=== PATIENT | male | born 1965 | race Caucasian/White ===

== ENCOUNTER → 2016-10-05 | Outpatient (CLI) | payer OTHER ==
[~2016-10-05] MED LIST: ATOR40TA PO; CARB10TACH PO; FLUO10CA8 PO; HYDR12.55 PO; IRON65TA PO; LISI-538 PO; NAPR500T PO; NAPR500T2 PO; PANT40TA2 PO; TRAZ50TA4 PO
--- NOTE | 2016-10-07 20:49 | SLEEPCENT ---
DATE OF PROCEDURE: 10/05/2016 REFERRING PHYSICIAN: Lady Bar NP Nocturnal polysomnography was performed for evaluation of sleep apnea syndrome symptoms in this patient with a history of excessive somnolence, nonrestorative sleep and comorbidities of hypertension. 8 hours and 20 minutes of data were reviewed. There were 362 minutes of sleep identified. Sleep latency was short at 8.5 minutes. Rapid eye movement (REM) latency was normal at 87.5 minutes. Sleep architecture showed severe fragmentation with periods of wake. There were four REM periods appreciated. Overall sleep efficiency was 74.1%. The patient's EKG showed a sinus rhythm with an average heart rate of 68 beats per minute. Rate variability was seen surrounding respiratory events. Rate ranged 60 to 80 beats per minute. EEG shows mild artifactual changes. No focal events were seen. Overall normal waveforms were seen for awake and sleep. There were 338 respiratory events identified of 10 seconds in duration or greater for an apnea/hypopnea index of 55.9. The events were primarily obstructive, but significant mixed and central apneic activity was also seen. The events were not exclusive to sleep stage nor body posture. Arousals were seen 35.8 times per hour from respiratory events. There was activity in the limb leads but limb movement arousal index was only 1.5. Oxygen desaturations were seen in the upper 70s. IMPRESSION: Severe obstructive sleep apnea syndrome (G47.33). Apnea-hypopnea index 55.9. RECOMMENDATION: The patient should be encouraged to return to the sleep disorder center at his earliest convenience for pressure therapy. In the interim, alcohol and sedative avoidance should be practiced and caution exercised during the operation of motor vehicles.
== END ==
LOC: M SLEEP 19:45
PROVIDERS: ATTEND Nurse Practitioner Adult Health
DX: G47.30 Sleep apnea, unspecified (principal)

== ENCOUNTER → 2016-10-25 | Outpatient (CLI) | payer OTHER ==
--- NOTE | 2016-10-25 14:36 | REP ---
Digital diagnostic bilateral mammography with CAD and focused bilateral sonography. History: Painful left breast enlargement. Tenderness. Comparison is made with CT angiography images from May 31, 2016. Mammographic findings: CC and MLO views of both breasts demonstrate a gynecomastia pattern of the subareolar fibroglandular elements on the left. Lesser changes are noted on the right. No other significant mammographic finding. No spiculation, microcalcification, mass lesion or worrisome skin change is seen. Sonographic findings: Bilateral subareolar sonography demonstrates hypoechoic tissue in the subareolar zone on the left without mass-like properties and to a lesser extent on the right. This is consistent with gynecomastia. No cyst or mass is seen. Impression: BIRADS category 2 benign bilateral breast imaging findings. Gynecomastia pattern. Clinical followup is advised. This mammogram was interpreted with the aid of an FDA-approved computer-aided detection system. The patient states she/he had a clinical breast exam in October 2016 The patient letter being requested is male letter M2 . Signed by Shailesh Jackson MD 10/25/2016 07:28 P
== END ==
LOC: M RAD 13:04
PROVIDERS: ATTEND Nurse Practitioner Family
DX: N64.4 Mastodynia (principal)

== ENCOUNTER → 2016-10-27 | Outpatient (CLI) | payer OTHER ==
--- NOTE | 2016-10-29 10:08 | SLEEPCENT ---
DATE OF PROCEDURE: 10/27/2016 ORDERED BY: Lady Bar. Nocturnal polysomnography was performed for the titration of pressure therapy in this patient with obstructive sleep apnea syndrome, Apnea-Hypopnea index of 55. For testing, the patient was fit with a ResMed Quattro full face mask of small size, 5 cm of water pressure applied to the circuit and the lights were extinguished. 6 hours and 51 minutes of data were reviewed. There were 325 minutes of sleep identified. Sleep latency was normal at 9.5 minutes. REM latency was normal at 70 minutes. Sleep architecture improved with optimal pressure therapy. Overall sleep efficiency was 80.3%. Patient's EKG showed a sinus rhythm with an average heart rate of 76 beats per minute. EEG showed normal wave forms for wake and sleep. Respiratory events were found best palliated with CPAP at a pressure of +12. CPAP tolerance was good. Some limb activity was noted. No trains of events were seen. Limb movement arousal index on this occasion was 5.5. IMPRESSION: Obstructive sleep apnea syndrome (G47.33). RECOMMENDATION: Nightly use of pressure therapy 12 cm of water.
== END ==
LOC: M SLEEP 19:50
PROVIDERS: ATTEND Nurse Practitioner Adult Health
DX: G47.33 Obstructive sleep apnea (adult) (pediatric) (principal)

== ENCOUNTER → 2016-11-04 | Outpatient (REF) | payer OTHER ==
[2016-11-04 13:14] LABS: FREE T4 0.93 NG/DL (0.76-1.46)
[2016-11-04 13:16] LABS: LUTEINIZING HORMONE 2.9 mIU/mL (1.5-9.3)
[2016-11-04 13:17] LABS: ESTRADIOL 40.2 PG/ML (<39.8)
[2016-11-04 15:15] LABS: PROLACTIN 13.2 NG/ML (2.1-17.7)
[2016-11-06 00:14] LABS: HCG SERUM TUMOR MARKER QUANT < 1 mIU/mL (0-3)
== END | disposition home or self-care (01) ==
LOC: M SFHCPLAZ 07:52
PROVIDERS: ATTEND Nurse Practitioner Family
DX: N62 Hypertrophy of breast (principal)

== ENCOUNTER → 2016-11-11 | Outpatient (CLI) | payer OTHER ==
--- NOTE | 2016-11-11 13:51 | REP ---
Clinical: Gynecomastia. Technique: Real time mcneil scale and color Doppler evaluation using linear high frequency transducer. Comparison: 07/11/2014. Findings: The testicles demonstrate normal vascularity and no significant mass lesion. Right testicle measures 3.9 x 2.2 x 3.2 cm and includes 7 mm septated cyst in the tunica and mildly dilated capsular vessels. The left testicle measures 4.0 x 2.0 x 2.7 cm and includes 2 mm intratesticular cyst, 2 mm epididymal head cyst and partially calcified appendix testis. Small to moderate bilateral hydroceles again appreciated. Left-sided varicoceles are again identified measuring up to approximately 4 mm diameter. Impression: Chronic stable changes as described above similar to 07/11/2014. No intratesticular mass lesion or acute abnormality identified. Signed by Odilon Blount MD 11/11/2016 01:43 P
== END ==
LOC: M RAD 12:35
PROVIDERS: ATTEND Nurse Practitioner Family
DX: N62 Hypertrophy of breast (principal)

== ENCOUNTER 2017-01-06 14:28 | Emergency (ER) | payer OTHER ==
[~2017-01-06] VITALS: Ht 175.3 cm; Wt 124.3 kg
[2017-01-06] MEDS ORDERED: FEXO60CA (14:44)
[2017-01-06] MEDS ORDERED: MELO15TA4 (14:44)
[2017-01-06] MEDS ORDERED: FLUO20CA9 (14:44)
[2017-01-06 16:18] LABS: INR 0.96
[2017-01-06 16:19] LABS: BASO % 0.6 % (0.0-1.0); EOS # 0.3 K/mm3 (0.0-0.50); EOS % 2.8 % (0.0-3.0); LARGE UNSTAINED CELL # 0.1 K/mm3 (0.0-0.4); LARGE UNSTAINED CELL % 1.2 % (0.0-4.0); LYMPH # 2.2 K/mm3 (1.5-4.5); LYMPH % 22.4 % (24.0-44.0); MEAN CORPUSCULAR HEMOGLOBIN 30.8 pg (27.0-33.0); MEAN CORPUSCULAR VOLUME 90.4 fl (80.0-96.0); MONO # 0.4 K/mm3 (0.0-0.8); MONO % 4.4 % (0.0-5.0); NEUTROPHILS # 6.3 K/mm3 (1.8-7.7); NEUTROPHILS % 68.6 % (36.0-66.0); PLATELET COUNT, AUTOMATED 181 k/mm3 (150-450); RED CELL DISTRIBUTION WIDTH 13.3 % (11.5-14.5); WHITE BLOOD COUNT 9.1 K/mm3 (4.0-10.0)
[2017-01-06 16:33] LABS: ANION GAP 8 MEQ/L (8-16); BLOOD UREA NITROGEN 18 MG/DL (7-18); CALCIUM LEVEL 8.5 MG/DL (8.5-10.1); CARBON DIOXIDE LEVEL 29 MEQ/L (21-32); CHLORIDE LEVEL 105 MEQ/L (98-107); CREATININE FOR GFR 1.03 MG/DL (0.70-1.30); GLOMERULAR FILTRATION RATE > 60.0 (>56); GLUCOSE, FASTING 87 MG/DL (70-105); POTASSIUM SERUM 3.8 MEQ/L (3.5-5.1); SODIUM LEVEL 142 MEQ/L (136-145)
[2017-01-06 16:38] LABS: ERYTHROCYTE SEDIMENTATION RATE 19 mm/hr (0-20)
--- NOTE | 2017-01-06 16:42 | REP ---
Duplex extremity venous ultrasound: Left lower extremity. History: Left foot swelling. Findings: The deep veins are anechoic and fully compressible from the groin to the popliteal fossa in the left lower extremity. Color flow imaging is homogeneous. Spectral Doppler interrogation demonstrates intact respiratory variation in flow and normal manual augmentation of flow. There is no evidence of deep vein thrombosis. Impression: Negative left lower extremity duplex venous ultrasound. No evidence of deep vein thrombosis. Signed by Shailesh Jackson MD 01/06/2017 04:33 P
[2017-01-06] MEDS ORDERED: ACET30TAB PO (16:48)
[2017-01-06 17:29] VITALS: BP 174/104
== END 2017-01-06 17:15 | disposition home or self-care (01) ==
LOC: M ED 15:46
DX: R60.0 Localized edema (principal); K21.9 Gastro-esophageal reflux disease without esophagitis; I10 Essential (primary) hypertension; F99 Mental disorder, not otherwise specified; Z87.891 Personal history of nicotine dependence; Z79.899 Other long term (current) drug therapy

== ENCOUNTER 2017-03-22 22:35 | Emergency (ER) | payer OTHER ==
[~2017-03-22] VITALS: Ht 175.3 cm; Wt 121.1 kg
[~2017-03-22 22:35] MED LIST changes: +ACET30TAB PO; -ATOR40TA PO; +ATOR40TA75 PO; +FEXO60CA PO; +FLUO20CA19; +MELO15TA4 PO; -NAPR500T2 PO; +NAPR500T3 PO; +TRAZ50TA11 PO; -TRAZ50TA4 PO
[2017-03-22 22:36] VITALS: BP 158/102
[2017-03-23] MEDS ORDERED: NAPR500T PO (02:07)
[2017-03-23] MEDS ORDERED: NAPROXEN 250 MG TAB PO ONE (02:15)
--- NOTE | 2017-03-23 08:24 | ECGEPIP ---
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
--- NOTE | 2017-03-23 08:54 | REP ---
Clinical: Shortness of breath . Comparison: 05/31/2016 . Technique: PA and lateral. Findings: The mediastinum and cardiac silhouette are normal. The lung floyd are clear and without acute consolidation, effusion, or pneumothorax. The skeletal structures are intact and normal. Impression: 1. No acute cardiopulmonary process. Signed by Odilon Blount MD 03/23/2017 08:46 A
== END 2017-03-23 02:41 | disposition home or self-care (01) ==
LOC: M ED 22:35
DX: S13.4XXA Sprain of ligaments of cervical spine, initial encounter (principal); X58.XXXA Exposure to other specified factors, initial encounter; Y92.89 Other specified places as the place of occurrence of the external cause; Y93.89 Activity, other specified; Y99.9 Unspecified external cause status

== ENCOUNTER → 2017-04-30 | Outpatient (CLI) | payer OTHER ==
[2017-04-30 10:29] LABS: MEAN CORPUSCULAR HEMOGLOBIN 31.9 pg (27.0-33.0); MEAN CORPUSCULAR HGB CONC 34.7 g/dl (32.0-36.5); MEAN CORPUSCULAR VOLUME 91.7 fl (80.0-96.0); RED CELL DISTRIBUTION WIDTH 13.2 % (11.5-14.5); WHITE BLOOD COUNT 7.4 K/mm3 (4.0-10.0)
[2017-04-30 12:58] LABS: ALBUMIN 3.6 GM/DL (3.2-5.2); ALBUMIN/GLOBULIN RATIO 1.33 (1.00-1.93); ALKALINE PHOSPHATASE 86 U/L (45-117); ALT/SGPT 35 U/L (12-78); ANION GAP 7 MEQ/L (8-16); AST/SGOT 15 U/L (15-37); BILIRUBIN,TOTAL 0.5 MG/DL (0.2-1.0); BLOOD UREA NITROGEN 11 MG/DL (7-18); CALCIUM LEVEL 8.6 MG/DL (8.5-10.1); CARBON DIOXIDE LEVEL 30 MEQ/L (21-32); CHLORIDE LEVEL 105 MEQ/L (98-107); CREATININE FOR GFR 0.81 MG/DL (0.70-1.30); FREE T4 1.02 NG/DL (0.76-1.46); GLOMERULAR FILTRATION RATE > 60.0 (>56); GLUCOSE, FASTING 91 MG/DL (70-105); PERCENT SATURATION 21.8 % (19.7-50.0); POTASSIUM SERUM 4.4 MEQ/L (3.5-5.1); SODIUM LEVEL 142 MEQ/L (136-145); TOTAL IRON BINDING CAPACITY 266 UG/DL (250-450); TOTAL PROTEIN 6.3 GM/DL (6.4-8.2)
== END ==
LOC: M LAB 09:57
PROVIDERS: ATTEND Physician Assistant Medical
DX: R19.7 Diarrhea, unspecified (principal)

== ENCOUNTER → 2017-05-14 | Outpatient (REF) | payer OTHER ==
[2017-05-14 17:58] LABS: BASO % 0.5 % (0.0-1.0); EOS # 0.3 K/mm3 (0.0-0.50); EOS % 3.3 % (0.0-3.0); LARGE UNSTAINED CELL # 0.1 K/mm3 (0.0-0.4); LARGE UNSTAINED CELL % 1.5 % (0.0-4.0); LYMPH # 2.1 K/mm3 (1.5-4.5); LYMPH % 24.1 % (24.0-44.0); MEAN CORPUSCULAR VOLUME 91.2 fl (80.0-96.0); MONO # 0.4 K/mm3 (0.0-0.8); MONO % 5.1 % (0.0-5.0); NEUTROPHILS # 5.6 K/mm3 (1.8-7.7); NEUTROPHILS % 65.5 % (36.0-66.0); PLATELET COUNT, AUTOMATED 210 k/mm3 (150-450); WHITE BLOOD COUNT 8.6 K/mm3 (4.0-10.0)
[2017-05-14 18:23] LABS: ALBUMIN 3.8 GM/DL (3.2-5.2); ALBUMIN/GLOBULIN RATIO 1.31 (1.00-1.93); ALKALINE PHOSPHATASE 93 U/L (45-117); ALT/SGPT 33 U/L (12-78); ANION GAP 8 MEQ/L (8-16); AST/SGOT 15 U/L (15-37); BILIRUBIN,TOTAL 0.7 MG/DL (0.2-1.0); BLOOD UREA NITROGEN 14 MG/DL (7-18); CARBON DIOXIDE LEVEL 28 MEQ/L (21-32); CHLORIDE LEVEL 107 MEQ/L (98-107); CREATININE FOR GFR 0.83 MG/DL (0.70-1.30); GLOMERULAR FILTRATION RATE > 60.0 (>56); GLUCOSE, FASTING 70 MG/DL (70-105); POTASSIUM SERUM 4.1 MEQ/L (3.5-5.1); SODIUM LEVEL 143 MEQ/L (136-145); TOTAL PROTEIN 6.7 GM/DL (6.4-8.2)
[2017-05-14 20:59] LABS: ERYTHROCYTE SEDIMENTATION RATE 9 mm/hr (0-20)
[2017-05-17 00:06] LABS: Lyme Disease IgG/IgM Antibodie <0.91 ISR (0.00-0.90); Lyme Disease IgM Ab Quantitati <0.80 index (0.00-0.79)
== END ==
LOC: M SFHCPLAZ 13:33
PROVIDERS: ATTEND Nurse Practitioner Family
DX: M25.50 Pain in unspecified joint (principal); M79.1 Myalgia; R53.83 Other fatigue

== ENCOUNTER → 2017-05-16 | Outpatient (REF) | payer OTHER | LOC: M LAB REF 16:03 | PROVIDERS: ATTEND Physician Assistant Medical | DX: R19.7 Diarrhea, unspecified (principal) ==

== ENCOUNTER → 2017-05-19 | Outpatient (CLI) | payer OTHER ==
[~2017-05-19] MED LIST changes: +E-Z-PAQUE 96% w/w SUSP 176GM BTL As Ordered ONE
--- NOTE | 2017-05-19 18:57 | REP ---
Small bowel follow-through The procedure was performed under the direct supervision of Dr. Jackson. The images were reviewed with Dr. Jackson. The cultural centre manager film shows no organomegaly or pathological masses. The intestinal gas pattern is nonspecific. There are multiple surgical clips noted overlying the pelvis consistent with the patient's history of prior hernia repair. Liquid barium was administered and the barium column was followed through the small bowel to the level of the terminal ileum. Small bowel transit time is approximately 2 hours . During fluoroscopy gentle palpation shows all loops are freely movable and pliable. There are no fixed or angulated loops. The small bowel mucosal pattern is normal in course and caliber. There is no transition to suggest a partial small bowel obstruction. Spot filming of the terminal ileum shows it to be unremarkable. Impression: Small bowel follow-through examination within normal limits. 1 minute and 31 seconds of fluoro time was utilized for this procedure. Reviewed by JUSTICE Patterson 05/19/2017 05:27 PSigned by Shailesh Jackson MD 05/19/2017 06:49 P
== END ==
LOC: M RAD 08:17
PROVIDERS: ATTEND Physician Assistant Medical
DX: R19.7 Diarrhea, unspecified (principal); D64.9 Anemia, unspecified; R10.84 Generalized abdominal pain

== ENCOUNTER 2017-06-19 10:53 | Outpatient (CLI) | payer OTHER ==
[~2017-06-19] VITALS: Ht 175.3 cm; Wt 117.9 kg
[~2017-06-19 10:53] MED LIST changes: -E-Z-PAQUE 96% w/w SUSP 176GM BTL As Ordered ONE
[2017-06-19] MEDS ORDERED: NS 1,000 ML IV SCH (11:45)
[2017-06-19] MEDS ORDERED: LIDOCAINE 2% INJ 100 MG/5 ML SDV (FOR ANES.) As Ordered ONE (12:51)
[2017-06-19] MEDS ORDERED: PROPOFOL 200 MG/20 ML VIAL As Ordered ONE (12:51)
--- NOTE | 2017-06-19 12:53 | ROOR ---
Patient Name: Sarmad Morrow Procedure Date: 06/19/2017 12:40 PM Date of : 1965 Age: 51 Room: [facility] Gender: Male Note Status: Finalized Procedure: Upper GI endoscopy Indications: Unspecified anemia, Heartburn Providers: Cosme SALEEM MD Referring MD: Randi Campbell NP Requesting Provider: Medicines: Monitored Anesthesia Care Complications: No immediate complications. Procedure: Pre-Anesthesia Assessment: - The heart rate, respiratory rate, oxygen saturations, blood pressure, adequacy of pulmonary ventilation, and response to care were monitored throughout the procedure. The Endoscope was introduced through the mouth, and advanced to the third part of duodenum. The upper GI endoscopy was accomplished without difficulty. The patient tolerated the procedure well. Findings: The esophagus was normal. The stomach was normal. The examined duodenum was normal. Impression: - Normal esophagus. - Normal stomach. - Normal examined duodenum. - No specimens collected. Recommendation: - Observe patient's clinical course. Cosme Saleem MD Cosme SALEEM MD 06/19/2017 12:53:14 PM This report has been signed electronically. Number of Addenda: 0 Note Initiated On: 06/19/2017 12:40 PM Estimated Blood Loss: Estimated blood loss: none.
--- NOTE | 2017-06-19 13:10 | ROOR ---
Patient Name: Sarmad Morrow Procedure Date: 06/19/2017 12:41 PM Date of : 1965 Age: 51 Room: [facility] Gender: Male Note Status: Finalized Procedure: Colonoscopy Indications: Clinically significant diarrhea of unexplained origin, Unspecified anemia Providers: Cosme SALEEM MD Referring MD: Randi Campbell NP Requesting Provider: Medicines: Monitored Anesthesia Care Complications: No immediate complications. Procedure: Pre-Anesthesia Assessment: - The heart rate, respiratory rate, oxygen saturations, blood pressure, adequacy of pulmonary ventilation, and response to care were monitored throughout the procedure. The Colonoscope was introduced through the anus and advanced to 8 cm into the ileum. The colonoscopy was performed without difficulty. The patient tolerated the procedure well. The quality of the bowel preparation was good. Findings: The perianal and digital rectal examinations were normal. A diminutive polyp was found in the sigmoid colon. The polyp was sessile. The polyp was removed with a jumbo cold forceps. Resection and retrieval were complete. The exam was otherwise normal throughout the examined colon. The terminal ileum appeared normal. Biopsies for histology were taken with a cold forceps for evaluation of microscopic colitis. Impression: - One diminutive polyp in the sigmoid colon, removed with a jumbo cold forceps. Resected and retrieved. - Small internal hemorrhoids. - The exam was otherwise normal throughout the examined colon. - The examined portion of the ileum was normal. - Biopsies were taken with a cold forceps for evaluation of microscopic colitis. Recommendation: - Telephone endoscopist for pathology results in 2 weeks. - Use fiber, for example Citrucel, Fibercon, Konsyl or Metamucil. - Imodium 1 tablet as needed after loose bowel movement. Cosme Saleem MD Cosme SALEEM MD 06/19/2017 1:09:41 PM This report has been signed electronically. Number of Addenda: 0 Note Initiated On: 06/19/2017 12:41 PM Estimated Blood Loss: Estimated blood loss: none.
[2017-06-19 13:30] VITALS: BP 167/101
== END 2017-06-19 13:45 | disposition home or self-care (01) ==
LOC: M OPP 10:53
PROVIDERS: ATTEND Internal Medicine Gastroenterology
DX: D64.9 Anemia, unspecified (principal); R19.7 Diarrhea, unspecified; D12.5 Benign neoplasm of sigmoid colon; K64.8 Other hemorrhoids; R12 Heartburn; K21.9 Gastro-esophageal reflux disease without esophagitis; I10 Essential (primary) hypertension; E78.5 Hyperlipidemia, unspecified; F32.9 Major depressive disorder, single episode, unspecified; F41.9 Anxiety disorder, unspecified; G47.30 Sleep apnea, unspecified; R06.83 Snoring; Z87.891 Personal history of nicotine dependence; Z79.899 Other long term (current) drug therapy

== ENCOUNTER 2017-09-23 14:27 | Inpatient (IN) | payer MEDICAID, OTHER ==
[2017-09-23 18:09] LABS: HEMATOCRIT 42.8 % (42.0-52.0); HEMOGLOBIN 14.6 g/dl (14.0-18.0); MEAN CORPUSCULAR HEMOGLOBIN 30.9 pg (27.0-33.0); MEAN CORPUSCULAR HGB CONC 34.1 g/dl (32.0-36.5); MEAN CORPUSCULAR VOLUME 90.7 fl (80.0-96.0); PLATELET COUNT, AUTOMATED 209 10^3/uL (150-450); RED BLOOD COUNT 4.72 10^6/uL (4.30-6.10); RED CELL DISTRIBUTION WIDTH 13.1 % (11.5-14.5); WHITE BLOOD COUNT 11.2 10^3/uL (4.0-10.0)
[2017-09-23 18:35] LABS: AMPHETAMINES LEVEL URINE NEGATIVE (NEGATIVE); BARBITURATES URINE NEGATIVE (NEGATIVE); BENZODIAZEPINES URINE NEGATIVE (NEGATIVE); CANNABINOIDS URINE NEGATIVE (NEGATIVE); COCAINE METABOLITE URINE NEGATIVE (NEGATIVE); METHADONE URINE NEGATIVE (NEGATIVE); OPIATES URINE NEGATIVE (NEGATIVE); PHENCYCLIDINE URINE NEGATIVE (NEGATIVE)
[2017-09-23 18:44] LABS: ALBUMIN 4.4 GM/DL (3.2-5.2); ALBUMIN/GLOBULIN RATIO 1.47 (1.00-1.93); ALKALINE PHOSPHATASE 95 U/L (45-117); ALT/SGPT 37 U/L (12-78); ANION GAP 7 MEQ/L (8-16); AST/SGOT 23 U/L (7-37); BILIRUBIN,DIRECT 0.2 MG/DL (0.0-0.2); BILIRUBIN,TOTAL 0.9 MG/DL (0.2-1.0); BLOOD UREA NITROGEN 13 MG/DL (7-18); CALCIUM LEVEL 9.3 MG/DL (8.5-10.1); CARBON DIOXIDE LEVEL 30 MEQ/L (21-32); CHLORIDE LEVEL 102 MEQ/L (98-107); CREATININE FOR GFR 0.83 MG/DL (0.70-1.30); ETHYL ALCOHOL (ETHANOL) 0.005 % (0.000-0.010); GLOMERULAR FILTRATION RATE > 60.0 (>56); GLUCOSE, FASTING 88 MG/DL (70-105); POTASSIUM SERUM 4.1 MEQ/L (3.5-5.1); SALICYLATE LEVEL < 1.7 MG/DL (5.0-30.0); SODIUM LEVEL 139 MEQ/L (136-145); TOTAL PROTEIN 7.4 GM/DL (6.4-8.2)
[2017-09-23 18:57] LABS: ACETAMINOPHEN LEVEL < 2.0 UG/ML (10.0-30.0)
[2017-09-23] MEDS ORDERED: MOM 30ML SUSPENSION UDC PO (19:30)
[2017-09-23] MEDS ORDERED: MAALOX 30 ML SUSP *UDC PO (19:30)
[2017-09-23] MEDS ORDERED: ATORVASTATIN 20 MG TAB PO (21:00)
[2017-09-24] MEDS: hydroCHLOROthiazide 25 MG TAB PO (08:19)
[2017-09-24] MEDS: MELOXICAM (MOBIC) 7.5 MG TAB PO (08:20)
[2017-09-24] MEDS: ATORVASTATIN 20 MG TAB PO (08:20)
[2017-09-24] MEDS: PANTOPRAZOLE 40MG TAB (PROTONIX) PO (08:20)
[2017-09-24] MEDS: LISINOPRIL 40 MG TAB PO (08:20)
[2017-09-24] MEDS: FLUoxetine 20 MG CAP PO (08:20)
[2017-09-24] MEDS: FERROUS SULFATE 325MG TAB PO (08:20)
[2017-09-25] MEDS: FERROUS SULFATE 325MG TAB PO (08:16)
[2017-09-25] MEDS: hydroCHLOROthiazide 25 MG TAB PO (08:16)
[2017-09-25] MEDS: ATORVASTATIN 20 MG TAB PO (08:17)
[2017-09-25] MEDS: PANTOPRAZOLE 40MG TAB (PROTONIX) PO (08:17)
[2017-09-25] MEDS: LISINOPRIL 40 MG TAB PO (08:17)
[2017-09-25] MEDS: FLUoxetine 20 MG CAP PO (08:18)
[2017-09-25] MEDS: ACETAMINOPHEN TAB 650MG DOSE (2X325MG) PO (09:40)
[2017-09-25] MEDS: CEPACOL LOZENGE PO ×4 (09:41→20:35)
[2017-09-26] MEDS: FLUoxetine 20 MG CAP PO (08:41)
[2017-09-26] MEDS: ATORVASTATIN 20 MG TAB PO (08:41)
[2017-09-26] MEDS: hydroCHLOROthiazide 25 MG TAB PO (08:41)
[2017-09-26] MEDS: PANTOPRAZOLE 40MG TAB (PROTONIX) PO (08:42)
[2017-09-26] MEDS: CEPACOL LOZENGE PO ×3 (08:42→21:07)
[2017-09-26] MEDS: LISINOPRIL 40 MG TAB PO (08:42)
[2017-09-26] MEDS: FEXOFENADINE 60 MG TAB PO (08:42)
[2017-09-26] MEDS: FERROUS SULFATE 325MG TAB PO (08:42)
[2017-09-27] MEDS: CEPACOL LOZENGE PO ×4 (06:12→21:06)
[2017-09-27] MEDS: FERROUS SULFATE 325MG TAB PO (07:47)
[2017-09-27] MEDS: hydroCHLOROthiazide 25 MG TAB PO (07:47)
[2017-09-27] MEDS: LISINOPRIL 40 MG TAB PO (07:47)
[2017-09-27] MEDS: FLUoxetine 20 MG CAP PO (07:48)
[2017-09-27] MEDS: ACETAMINOPHEN TAB 650MG DOSE (2X325MG) PO (07:48)
[2017-09-27] MEDS: PANTOPRAZOLE 40MG TAB (PROTONIX) PO (07:48)
[2017-09-27] MEDS: ATORVASTATIN 20 MG TAB PO (07:48)
[2017-09-28] MEDS: hydroCHLOROthiazide 25 MG TAB PO (09:27)
[2017-09-28] MEDS: FLUoxetine 20 MG CAP PO (09:27)
[2017-09-28] MEDS: LISINOPRIL 40 MG TAB PO (09:27)
[2017-09-28] MEDS: FERROUS SULFATE 325MG TAB PO (09:28)
[2017-09-28] MEDS: ATORVASTATIN 20 MG TAB PO (09:28)
[2017-09-28] MEDS: PANTOPRAZOLE 40MG TAB (PROTONIX) PO (09:29)
[2017-09-28] MEDS: ACETAMINOPHEN TAB 650MG DOSE (2X325MG) PO ×2 (11:36→20:09)
[2017-09-28] MEDS: CEPACOL LOZENGE PO ×2 (15:27→20:09)
[2017-09-28] MEDS: FEXOFENADINE 60 MG TAB PO (15:27)
[2017-09-28] MEDS: traZODone 50 MG TAB PO (21:41)
[2017-09-29] MEDS: CEPACOL LOZENGE PO ×4 (06:33→21:36)
[2017-09-29] MEDS: FLUoxetine 20 MG CAP PO (08:46)
[2017-09-29] MEDS: hydroCHLOROthiazide 25 MG TAB PO (08:46)
[2017-09-29] MEDS: PANTOPRAZOLE 40MG TAB (PROTONIX) PO (08:46)
[2017-09-29] MEDS: ATORVASTATIN 20 MG TAB PO (08:47)
[2017-09-29] MEDS: FERROUS SULFATE 325MG TAB PO (08:47)
[2017-09-29] MEDS: LISINOPRIL 40 MG TAB PO (08:47)
[2017-09-29] MEDS: ACETAMINOPHEN TAB 650MG DOSE (2X325MG) PO ×2 (12:24→18:17)
[2017-09-29] MEDS: FEXOFENADINE 60 MG TAB PO (12:24)
[2017-09-29] MEDS: traZODone 50 MG TAB PO (21:36)
[2017-09-30] MEDS: hydroCHLOROthiazide 25 MG TAB PO (08:43)
[2017-09-30] MEDS: LISINOPRIL 40 MG TAB PO (08:43)
[2017-09-30] MEDS: ATORVASTATIN 20 MG TAB PO (08:43)
[2017-09-30] MEDS: PANTOPRAZOLE 40MG TAB (PROTONIX) PO (08:43)
[2017-09-30] MEDS: FERROUS SULFATE 325MG TAB PO (08:44)
[2017-09-30] MEDS: FLUoxetine 20 MG CAP PO (08:44)
[2017-09-30] MEDS: CEPACOL LOZENGE PO (09:30)
== END 2017-09-30 11:49 | disposition home or self-care (01) | DRG 885 ==
LOC: M PSY 09-27 17:36 → M ED 14:27 → M ED INP 19:29 → M PSY 20:28
DX: F33.9 Major depressive disorder, recurrent, unspecified (principal); F10.21 Alcohol dependence, in remission; F79 Unspecified intellectual disabilities; J30.9 Allergic rhinitis, unspecified; I10 Essential (primary) hypertension; E78.5 Hyperlipidemia, unspecified; K21.9 Gastro-esophageal reflux disease without esophagitis; Z98.52 Vasectomy status; Z79.899 Other long term (current) drug therapy

== ENCOUNTER → 2017-10-27 | Outpatient (REF) | payer OTHER ==
[2017-10-28 08:06] LABS: HAPTOGLOBIN 132 mg/dL (34-200)
== END ==
LOC: M SFHCPLAZ 09:18
DX: E61.1 Iron deficiency (principal)

== ENCOUNTER → 2017-10-31 | Outpatient (REF) | payer OTHER ==
[2017-10-31 13:01] LABS: BASO # 0.1 10^3/uL (0.0-0.2); BASO % 0.6 % (0.0-1.0); EOS # 0.3 10^3/uL (0.0-0.50); EOS % 3.5 % (0.0-3.0); HEMATOCRIT 39.6 % (42.0-52.0); HEMOGLOBIN 13.4 g/dl (14.0-18.0); IMMATURE GRANULOCYTE % 1.5 % (0-3.0); LYMPH # 2.1 10^3/uL (1.5-4.5); LYMPH % 23.9 % (24.0-44.0); MEAN CORPUSCULAR HEMOGLOBIN 31.1 pg (27.0-33.0); MEAN CORPUSCULAR HGB CONC 33.8 g/dl (32.0-36.5); MEAN CORPUSCULAR VOLUME 91.9 fl (80.0-96.0); MONO # 0.6 10^3/uL (0.0-0.8); MONO % 6.6 % (0.0-5.0); NEUTROPHILS # 5.7 10^3/uL (1.8-7.7); NEUTROPHILS % 63.9 % (36.0-66.0); PLATELET COUNT, AUTOMATED 180 10^3/uL (150-450); RED BLOOD COUNT 4.31 10^6/uL (4.30-6.10); RED CELL DISTRIBUTION WIDTH 13.2 % (11.5-14.5); WHITE BLOOD COUNT 8.9 10^3/uL (4.0-10.0)
[2017-10-31 13:20] LABS: ALBUMIN 3.9 GM/DL (3.2-5.2); ALBUMIN/GLOBULIN RATIO 1.34 (1.00-1.93); ALKALINE PHOSPHATASE 86 U/L (45-117); ALT/SGPT 29 U/L (12-78); ANION GAP 6 MEQ/L (8-16); AST/SGOT 14 U/L (7-37); BILIRUBIN,TOTAL 0.5 MG/DL (0.2-1.0); BLOOD UREA NITROGEN 23 MG/DL (7-18); CARBON DIOXIDE LEVEL 29 MEQ/L (21-32); CHLORIDE LEVEL 104 MEQ/L (98-107); GLOMERULAR FILTRATION RATE > 60.0 (>56); GLUCOSE, FASTING 96 MG/DL (70-100); IRON (FE) 90 UG/DL (65-175); PERCENT SATURATION 33.2 % (19.7-50.0); POTASSIUM SERUM 4.4 MEQ/L (3.5-5.1); SODIUM LEVEL 139 MEQ/L (136-145); TOTAL IRON BINDING CAPACITY 271 UG/DL (250-450); TOTAL PROTEIN 6.8 GM/DL (6.4-8.2)
== END ==
LOC: M SFHCPLAZ 08:39
DX: D50.9 Iron deficiency anemia, unspecified (principal); I10 Essential (primary) hypertension

== ENCOUNTER 2017-12-08 14:49 | Emergency (ER) | payer OTHER | END 2017-12-08 18:29 | disposition home or self-care (01) | LOC: M ED 14:49 | DX: M76.62 Achilles tendinitis, left leg (principal); I10 Essential (primary) hypertension; E78.00 Pure hypercholesterolemia, unspecified; F41.9 Anxiety disorder, unspecified; F32.9 Major depressive disorder, single episode, unspecified; Z87.891 Personal history of nicotine dependence; Z79.899 Other long term (current) drug therapy | CPT/HCPCS: 73630 ==

== ENCOUNTER 2018-02-09 20:00 | Emergency (ER) | payer OTHER ==
[2018-02-09] MEDS: NORCO 5/325MG TABLET (BULK FOR ED) PO (23:01)
== END 2018-02-09 23:08 | disposition home or self-care (01) ==
LOC: M ED 20:00
DX: S69.91XA Unspecified injury of right wrist, hand and finger(s), initial encounter (principal); W01.0XXA Fall on same level from slipping, tripping and stumbling without subsequent striking against object, initial encounter; Y92.480 Sidewalk as the place of occurrence of the external cause; I10 Essential (primary) hypertension; F41.9 Anxiety disorder, unspecified; F32.9 Major depressive disorder, single episode, unspecified; Z79.899 Other long term (current) drug therapy
CPT/HCPCS: 73110

== ENCOUNTER 2018-03-09 17:37 | Emergency (ER) | payer OTHER ==
[2018-03-09 20:38] LABS: ANION GAP 4 MEQ/L (8-16); BLOOD UREA NITROGEN 13 MG/DL (7-18); CALCIUM LEVEL 8.4 MG/DL (8.5-10.1); CARBON DIOXIDE LEVEL 31 MEQ/L (21-32); CHLORIDE LEVEL 105 MEQ/L (98-107); CREATININE FOR GFR 0.81 MG/DL (0.70-1.30); GLOMERULAR FILTRATION RATE > 60.0 (>56); GLUCOSE, FASTING 79 MG/DL (70-100); POTASSIUM SERUM 3.4 MEQ/L (3.5-5.1); SODIUM LEVEL 140 MEQ/L (136-145)
[2018-03-09 20:41] LABS: BASO % 0.4 % (0.0-1.0); EOS # 0.3 10^3/uL (0.0-0.50); EOS % 3.4 % (0.0-3.0); HEMATOCRIT 40.1 % (42.0-52.0); HEMOGLOBIN 13.4 g/dl (13.5-17.5); IMMATURE GRANULOCYTE % 0.6 % (0-3.0); LYMPH # 1.5 10^3/uL (1.5-4.5); LYMPH % 18.8 % (24.0-44.0); MEAN CORPUSCULAR HEMOGLOBIN 30.9 pg (27.0-33.0); MEAN CORPUSCULAR HGB CONC 33.4 g/dl (32.0-36.5); MEAN CORPUSCULAR VOLUME 92.4 fl (80.0-96.0); MONO # 0.7 10^3/uL (0.0-0.8); NEUTROPHILS # 5.6 10^3/uL (1.8-7.7); NEUTROPHILS % 68.8 % (36.0-66.0); PLATELET COUNT, AUTOMATED 166 10^3/uL (150-450); RED BLOOD COUNT 4.34 10^6/uL (4.30-6.10); WHITE BLOOD COUNT 8.2 10^3/uL (4.0-10.0)
[2018-03-09 20:51] LABS: KETONE, URINE AUTO RFX NEGATIVE (NEGATIVE); LEUKOCYTE ESTERASE UR AUTO RFX NEGATIVE (NEGATIVE); MUCUS, URINE RFX SMALL (NEGATIVE); NITRITE, URINE AUTO RFX NEGATIVE (NEGATIVE); RBC, URINE AUTO RFX 3 /HPF (0-3); SPECIFIC GRAVITY UR AUTO RFX 1.028 (1.002-1.035); SQUAM EPITHELIAL CELL UR AURFX 0 /HPF (0-6); WBC, URINE AUTO RFX 2 /HPF (0-3)
[2018-03-09] MEDS: NS 1,000 ML IV (22:00)
[2018-03-09 22:12] LABS: ALBUMIN 3.4 GM/DL (3.2-5.2); ALKALINE PHOSPHATASE 80 U/L (45-117); ALT/SGPT 28 U/L (12-78); AMYLASE 40 U/L (25-115); AST/SGOT 15 U/L (7-37); BILIRUBIN,DIRECT 0.2 MG/DL (0.0-0.2); BILIRUBIN,TOTAL 0.8 MG/DL (0.2-1.0); LIPASE 86 U/L (73-393); TOTAL PROTEIN 6.8 GM/DL (6.4-8.2)
[2018-03-09] MEDS ORDERED: ISOVUE-370 76% 100ML VIAL (Q9967) As Ordered (22:37)
[2018-03-09] MEDS: ONDANSETRON 4 MG ORAL DISINTEGRATING TAB (Q0162 PER 1MG) PO (23:45)
== END 2018-03-09 23:49 | disposition home or self-care (01) ==
LOC: M ED 17:37
DX: R10.31 Right lower quadrant pain (principal); R11.2 Nausea with vomiting, unspecified; F41.9 Anxiety disorder, unspecified; F32.9 Major depressive disorder, single episode, unspecified; I10 Essential (primary) hypertension; K21.9 Gastro-esophageal reflux disease without esophagitis; Z87.891 Personal history of nicotine dependence; Z79.899 Other long term (current) drug therapy
CPT/HCPCS: Q9967

== ENCOUNTER → 2018-03-13 | Outpatient (REF) | payer OTHER ==
[2018-03-13 18:35] LABS: ALBUMIN 3.9 GM/DL (3.2-5.2); ALBUMIN/GLOBULIN RATIO 1.34 (1.00-1.93); ALKALINE PHOSPHATASE 90 U/L (45-117); ALT/SGPT 34 U/L (12-78); ANION GAP 7 MEQ/L (8-16); AST/SGOT 13 U/L (7-37); BILIRUBIN,TOTAL 0.7 MG/DL (0.2-1.0); BLOOD UREA NITROGEN 14 MG/DL (7-18); CALCIUM LEVEL 9.1 MG/DL (8.5-10.1); CARBON DIOXIDE LEVEL 30 MEQ/L (21-32); CHLORIDE LEVEL 103 MEQ/L (98-107); CREATININE FOR GFR 0.98 MG/DL (0.70-1.30); GLOMERULAR FILTRATION RATE > 60.0 (>56); GLUCOSE, FASTING 82 MG/DL (70-100); SODIUM LEVEL 140 MEQ/L (136-145); TOTAL PROTEIN 6.8 GM/DL (6.4-8.2)
[2018-03-17 00:07] LABS: TISSUE TRANSGLUTAMINASE IgA <2 U/mL (0-3)
== END ==
LOC: M SFHCPLAZ 14:55
DX: R19.7 Diarrhea, unspecified (principal)
CPT/HCPCS: 80053

== ENCOUNTER → 2018-05-01 | Outpatient (REF) | payer OTHER | LOC: M SFHCPLAZ 12:00 | DX: R19.7 Diarrhea, unspecified (principal) ==

== ENCOUNTER → 2018-05-12 | Outpatient (CLI) | payer OTHER | LOC: M RAD 13:23 | DX: R19.7 Diarrhea, unspecified (principal); R10.84 Generalized abdominal pain | CPT/HCPCS: 74021 ==

== ENCOUNTER → 2018-05-29 | Outpatient (CLI) | payer OTHER ==
[~2018-05-29] MED LIST changes: -ACET30TAB PO; -ATOR40TA75 PO; -CARB10TACH PO; -FEXO60CA PO; -FLUO10CA8 PO; -FLUO20CA19; +GLUCAGON FOR INJ 1 MG VIAL (J1610) As Ordered; -HYDR12.55 PO; -IRON65TA PO; +ISOVUE-370 76% 100ML VIAL (Q9967) As Ordered; -LISI-538 PO; -MELO15TA4 PO; -NAPR500T PO; -NAPR500T3 PO; -PANT40TA2 PO; -TRAZ50TA11 PO; +VoLumen 0.1% SUSPENSION 450ML BOTTLE As Ordered
== END ==
LOC: M RAD 08:30
DX: N28.1 Cyst of kidney, acquired (principal); N20.0 Calculus of kidney; R10.84 Generalized abdominal pain; R19.7 Diarrhea, unspecified; Z98.890 Other specified postprocedural states
CPT/HCPCS: Q9967

== ENCOUNTER → 2018-07-22 | Outpatient (REF) | payer OTHER ==
[2018-07-27 14:09] LABS: FATS NEUTRAL Normal (.); FATS TOTAL Normal (.); PANCREATIC ELASTASE STOOL 312 (>200)
== END ==
LOC: M LAB REF 13:54
DX: R19.7 Diarrhea, unspecified (principal)

== ENCOUNTER 2018-10-13 10:00 | Emergency (ER) | payer OTHER ==
[~2018-10-13] VITALS: Ht 175.3 cm; Wt 122.7 kg
[~2018-10-13 10:00] MED LIST changes: +ACET30TAB PO; +AMLO5TAB6 PO; +ATOR40TA75 PO; +CARB10TACH PO; +FEXO60CA PO; +FLUO10CA8 PO; +FLUO20CA19; +FLUO40CA PO; -GLUCAGON FOR INJ 1 MG VIAL (J1610) As Ordered; +HYDR12.55 PO; +IRON65TA PO; -ISOVUE-370 76% 100ML VIAL (Q9967) As Ordered; +LISI-538 PO; +MELO15TA28 PO; +NAPR-50 PO; +NAPR-885 PO; +NORCOTAB PO; +PANT40TA3 PO; +PRED20TA PO; +TRAZ-160 PO; -VoLumen 0.1% SUSPENSION 450ML BOTTLE As Ordered; +ZOFR4TAB14 PO
[2018-10-13] MEDS ORDERED: ZOLO100T PO (10:05)
--- NOTE | 2018-10-13 12:05 | REP ---
SCROTAL SONOGRAPHY: HISTORY: Left testicular swelling and pain times 1 day. History of undescended testis as a child. FINDINGS: High-resolution bilateral scanning demonstrates small bilateral hydroceles. No intratesticular mass lesion is seen. The right testis measures 4.4 x 2.0 x 3.7 cm and contains some microcalcifications. The left testis measures 3.9 x 2.3 x 2.9 cm. It shows some heterogeneous echotexture, question orchitis. The tail of the epididymis on the left is enlarged and hyperemic consistent with epididymitis. There is a 2 mm cyst in the head of the epididymis on the left. There is a 2 mm cyst in the inferior pole of the left testis. There is a 1.5 mm shadowing calculus adjacent to the lower pole of the right testis consistent with small scrotolith. Also noted is an 8 x 5 mm cyst of the tunica incidentally noted on the right. Testicular Doppler flow is normal bilaterally with resistive indices 0.24 on the right and 0.38 on the left. IMPRESSION: Findings consistent with an left-sided epididymitis possibly epididymo-orchitis. Epididymal head cyst on the left. 8 mm tunica cyst and scrotolith noted incidentally in the right scrotum. Electronically Signed by Shailesh Jackson MD 10/13/2018 05:31 P
[2018-10-13] MEDS ORDERED: LEVO500T3 PO (12:13)
--- NOTE | 2018-10-13 12:14 | REP ---
INGUINAL ULTRASOUND: Bilateral. HISTORY: History of undescended testis as a child. Left-sided testicular pain and swelling times 1 day. FINDINGS: There is a small amount of fluid near the external inguinal rings bilaterally. Small bilateral hydroceles are seen in the scrotal ultrasound. There is no evidence of inguinal hernia with or without Valsalva on either side. IMPRESSION: No inguinal hernia seen. Electronically Signed by Shailesh Jackson MD 10/13/2018 05:32 P
[2018-10-13 12:36] VITALS: BP 135/89
== END 2018-10-13 12:40 | disposition home or self-care (01) ==
LOC: M ED 10:00
DX: N45.3 Epididymo-orchitis (principal); Z87.891 Personal history of nicotine dependence; Z79.899 Other long term (current) drug therapy

== ENCOUNTER → 2018-10-16 | Outpatient (REF) | payer OTHER ==
[~2018-10-16] MED LIST changes: +LEVO500T3 PO; +ZOLO100T PO
[2018-10-16 13:39] LABS: APPEARANCE, URINE CLEAR (CLEAR); BACTERIA, URINE AUTO NEGATIVE (NEGATIVE); BILIRUBIN, URINE AUTO NEGATIVE (NEGATIVE); BLOOD, URINE BLOOD NEGATIVE (NEGATIVE); COLOR, URINE YELLOW (YELLOW); GLUCOSE, URINE (UA) AUTO NEGATIVE (NEGATIVE); KETONE, URINE AUTO NEGATIVE (NEGATIVE); LEUKOCYTE ESTERASE, URINE AUTO NEGATIVE (NEGATIVE); NITRITE, URINE AUTO NEGATIVE (NEGATIVE); PROTEIN, URINE AUTO NEGATIVE (NEGATIVE); RBC, URINE AUTO 0 /HPF (0-3); SPECIFIC GRAVITY URINE AUTO 1.016 (1.002-1.035); SQUAMOUS EPITHELIAL CELL UR AU 0 /HPF (0-6); UROBILINOGEN, URINE AUTO 0.2 mg/dL (0.0-2.0); WBC, URINE AUTO 0 /HPF (0-3)
[2018-10-16 15:53] LABS: CHLAMYDIA DNA AMPLIFICATION NEGATIVE (NEGATIVE); GC DNA AMPLIFICATION NEGATIVE (NEGATIVE)
== END ==
LOC: M SMT 13:09
PROVIDERS: ATTEND Nurse Practitioner Family
DX: N45.1 Epididymitis (principal)

== ENCOUNTER 2018-12-14 13:33 | Emergency (ER) | payer OTHER ==
[~2018-12-14] VITALS: Ht 175.3 cm; Wt 128.8 kg
[2018-12-14 13:33] VITALS: BP 188/126
[~2018-12-14 13:33] MED LIST changes: +ACET-716 PO; -ACET30TAB PO; +HYDR-3715 PO; -NORCOTAB PO
[2018-12-14] MEDS ORDERED: SERT-155 (13:39)
[2018-12-14] MEDS ORDERED: FLUORESCEIN OPHTH 1 MG STRIP OD ONE (15:45)
[2018-12-14] MEDS ORDERED: POLYSOL OP (16:02)
== END 2018-12-14 16:16 | disposition home or self-care (01) ==
LOC: M ED 13:33
DX: H10.31 Unspecified acute conjunctivitis, right eye (principal); Z79.899 Other long term (current) drug therapy

== ENCOUNTER 2018-12-15 12:46 | Outpatient (RCR) | payer OTHER ==
[~2018-12-15 12:46] MED LIST changes: -ACET-716 PO; +ACET30TAB PO; -HYDR-3715 PO; +NORCOTAB PO; +POLYSOL OP; +SERT-155
== END 2018-12-20 ==
LOC: M PT 12:46
PROVIDERS: ATTEND Physician Assistant
DX: Z51.89 Encounter for other specified aftercare (principal); M25.551 Pain in right hip; M54.5 Low back pain; M25.552 Pain in left hip

== ENCOUNTER → 2018-12-29 | Outpatient (REF) | payer OTHER ==
[~2018-12-29] MED LIST changes: +ACET-716 PO; -ACET30TAB PO; +HYDR-3715 PO; -NAPR-50 PO; +NAPR-837 PO; -NORCOTAB PO
== END ==
LOC: M LAB REF 14:29
PROVIDERS: ATTEND Physician Assistant Medical
DX: R19.7 Diarrhea, unspecified (principal)

== ENCOUNTER → 2019-01-01 | Outpatient (CLI) | payer OTHER | LOC: M LAB 15:00 | PROVIDERS: ATTEND Physician Assistant Medical | DX: R19.7 Diarrhea, unspecified (principal) ==

== ENCOUNTER 2019-01-12 11:15 | Outpatient (RCR) | payer OTHER | END 2019-01-19 | LOC: M PT 11:15 | PROVIDERS: ATTEND Physician Assistant | DX: M25.551 Pain in right hip (principal); M25.552 Pain in left hip; M54.5 Low back pain ==

== ENCOUNTER 2019-02-28 19:48 | Emergency (ER) | payer OTHER ==
[~2019-02-28] VITALS: Ht 175.3 cm; Wt 125.1 kg
[~2019-02-28 19:48] MED LIST changes: -TRAZ-160 PO; +TRAZ-252 PO
[2019-02-28] MEDS ORDERED: OMEP-221 (19:55)
[2019-02-28] MEDS ORDERED: IBUPROFEN 600 MG TAB PO ONE (21:00)
[2019-02-28 21:39] LABS: BLOOD UREA NITROGEN 22 MG/DL (7-18); CALCIUM LEVEL 8.6 MG/DL (8.5-10.1); CARBON DIOXIDE LEVEL 28 MEQ/L (21-32); CHLORIDE LEVEL 106 MEQ/L (98-107); CREATININE FOR GFR 0.99 MG/DL (0.70-1.30); GLOMERULAR FILTRATION RATE > 60.0 (>56); GLUCOSE, FASTING 114 MG/DL (70-100); POTASSIUM SERUM 3.5 MEQ/L (3.5-5.1); SODIUM LEVEL 141 MEQ/L (136-145); URIC ACID 8.6 MG/DL (3.5-7.2)
--- NOTE | 2019-02-28 22:44 | REPVR ---
EXAM: US Duplex Right Lower Extremity Veins, Limited EXAM DATE/TIME: 02/28/2019 9:44 PM CLINICAL HISTORY: 53 years old, male; Pain; Leg, lower and other: Post knee; Right; Additional info: Calf pain, swelling TECHNIQUE: Imaging protocol: Real-time Duplex ultrasound of the Right Lower Extremity with 2-D mcneil scale, color Doppler flow and spectral waveform analysis. Limited exam was focused on the right lower extremity veins. COMPARISON: US Duplex, Ext,LOWER veins,unilat 01/06/2017 4:13 PM FINDINGS: Right deep veins: Unremarkable. The common femoral, femoral and popliteal veins are patent without thrombus. Normal Doppler waveforms. Normal compressibility and/or augmentation response. Right superficial veins: Unremarkable. Saphenofemoral junction is patent without thrombus. Soft tissues: 3.4 x 0.9 x 2.1 cm popliteal cyst. IMPRESSION: 1. No sonographic evidence of deep venous thrombosis. 2. 3.4 x 0.9 x 2.1 cm popliteal cyst. Electronically signed by: Miguel De Paz On 02/28/2019 22:44:14 PM
[2019-02-28] MEDS ORDERED: QC A650T3 PO (23:05)
[2019-02-28 23:11] VITALS: BP 162/86
== END 2019-02-28 23:15 | disposition home or self-care (01) ==
LOC: M ED 19:48
DX: M79.661 Pain in right lower leg (principal); I83.90 Asymptomatic varicose veins of unspecified lower extremity; M71.21 Synovial cyst of popliteal space [Baker], right knee; I10 Essential (primary) hypertension; E78.5 Hyperlipidemia, unspecified; K21.9 Gastro-esophageal reflux disease without esophagitis; Z87.891 Personal history of nicotine dependence; Z79.899 Other long term (current) drug therapy

== ENCOUNTER 2019-03-12 08:15 | Outpatient (RCR) | payer OTHER ==
[~2019-03-12 08:15] MED LIST changes: +OMEP-221; +QC A650T3 PO
== END 2019-03-21 ==
LOC: M PT 08:15
PROVIDERS: ATTEND Physician Assistant
DX: M25.551 Pain in right hip (principal); M25.552 Pain in left hip; M54.5 Low back pain

== ENCOUNTER 2019-05-03 21:04 | Emergency (ER) | payer OTHER ==
[~2019-05-03] VITALS: Ht 177.8 cm; Wt 122.7 kg
[2019-05-03 21:04] VITALS: BP 183/97
[2019-05-04] MEDS ORDERED: CAPS0.022 TOP (02:36)
[2019-05-04] MEDS ORDERED: BIOF4GEL4 TOP (02:36)
[2019-05-04] MEDS ORDERED: ACETAMINOPHEN 325 MG TAB PO ONE (02:45)
== END 2019-05-04 03:00 | disposition home or self-care (01) ==
LOC: M ED 21:04
DX: M79.662 Pain in left lower leg (principal); M79.89 Other specified soft tissue disorders; I10 Essential (primary) hypertension; E78.5 Hyperlipidemia, unspecified; Z79.899 Other long term (current) drug therapy

== ENCOUNTER 2019-05-21 10:27 | Outpatient (RCR) | payer OTHER ==
[~2019-05-21 10:27] MED LIST changes: +BIOF4GEL4 TOP; +CAPS0.022 TOP
== END 2019-05-22 ==
LOC: M PT 10:27
PROVIDERS: ATTEND Physician Assistant
DX: Z51.89 Encounter for other specified aftercare (principal); M51.36 Other intervertebral disc degeneration, lumbar region; M17.0 Bilateral primary osteoarthritis of knee

== ENCOUNTER 2019-06-04 10:16 | Outpatient (RCR) | payer OTHER | END 2019-06-21 | LOC: M PT 10:16 | PROVIDERS: ATTEND Physician Assistant | DX: Z51.89 Encounter for other specified aftercare (principal); M51.36 Other intervertebral disc degeneration, lumbar region; M17.0 Bilateral primary osteoarthritis of knee ==

== ENCOUNTER 2019-07-20 14:45 | Outpatient (RCR) | payer OTHER ==
[~2019-07-20 14:45] MED LIST changes: -SERT-155; +SERT50TA29
== END 2019-07-22 ==
LOC: M PT 14:45
PROVIDERS: ATTEND Orthopaedic Surgery Hand Surgery
DX: M17.12 Unilateral primary osteoarthritis, left knee (principal)

== ENCOUNTER 2019-07-30 13:42 | Emergency (ER) | payer OTHER ==
[~2019-07-30] VITALS: Ht 175.3 cm; Wt 122.6 kg
[~2019-07-30 13:42] MED LIST changes: -OMEP-221; +OMEP-221 PO; -SERT50TA29; +SERT50TA29 PO
[2019-07-30] MEDS ORDERED: METH4PACK PO (13:57)
[2019-07-30] MEDS ORDERED: CYCL10TA PO (13:57)
[2019-07-30] MEDS ORDERED: BUPR75TA5 PO (13:57)
[2019-07-30 14:10] VITALS: BP 142/86
== END 2019-07-30 14:28 | disposition home or self-care (01) ==
LOC: M ED 13:42
DX: M62.830 Muscle spasm of back (principal); I10 Essential (primary) hypertension; K21.9 Gastro-esophageal reflux disease without esophagitis; G47.33 Obstructive sleep apnea (adult) (pediatric); E78.00 Pure hypercholesterolemia, unspecified; F41.9 Anxiety disorder, unspecified; F32.9 Major depressive disorder, single episode, unspecified; Z79.899 Other long term (current) drug therapy

== ENCOUNTER 2019-08-13 07:30 | Outpatient (RCR) | payer OTHER ==
[~2019-08-13 07:30] MED LIST changes: +BUPR75TA5 PO; +CYCL10TA PO; +METH4PACK PO
== END 2019-08-21 ==
LOC: M PT 07:30
PROVIDERS: ATTEND Orthopaedic Surgery Hand Surgery
DX: Z47.89 Encounter for other orthopedic aftercare (principal)

== ENCOUNTER → 2019-08-17 | Outpatient (REF) | payer OTHER ==
[2019-08-17 12:57] LABS: BASO # 0.1 10^3/uL (0.0-0.2); BASO % 0.7 % (0.0-1.0); EOS # 0.3 10^3/uL (0.0-0.5); EOS % 3.6 % (0.0-3.0); HEMATOCRIT 39.3 % (42.0-52.0); HEMOGLOBIN 13.1 g/dl (13.5-17.5); LYMPH % 26.1 % (24.0-44.0); MEAN CORPUSCULAR HEMOGLOBIN 31.1 pg (27.0-33.0); MEAN CORPUSCULAR HGB CONC 33.3 g/dl (32.0-36.5); MEAN CORPUSCULAR VOLUME 93.3 fl (80.0-96.0); MONO # 0.5 10^3/uL (0.0-0.8); MONO % 6.5 % (0.0-5.0); NEUTROPHILS # 4.7 10^3/uL (1.5-8.5); NEUTROPHILS % 62.3 % (36.0-66.0); PLATELET COUNT, AUTOMATED 178 10^3/uL (150-450); RED BLOOD COUNT 4.21 10^6/uL (4.30-6.10); WHITE BLOOD COUNT 7.5 10^3/uL (4.0-10.0)
[2019-08-17 13:05] LABS: C REACTIVE PROTEIN QUANTITATIV 1.11 MG/DL (0.00-0.30); RHEUMATOID FACTOR QUANT < 10.0 IU/ML (<15.0)
[2019-08-17 13:19] LABS: ALBUMIN 3.7 GM/DL (3.2-5.2); ALT/SGPT 30 U/L (12-78); BILIRUBIN,TOTAL 0.6 MG/DL (0.2-1.0); BLOOD UREA NITROGEN 16 MG/DL (7-18); CARBON DIOXIDE LEVEL 30 MEQ/L (21-32); CHLORIDE LEVEL 104 MEQ/L (98-107); CHOLESTEROL LEVEL 173 MG/DL (<200); CHOLESTEROL RISK RATIO 3.844 (<5); CREATININE FOR GFR 0.85 MG/DL (0.70-1.30); FERRITIN 285 NG/ML (26-388); GLOMERULAR FILTRATION RATE > 60.0 (>56); GLUCOSE, FASTING 92 MG/DL (70-100); HDL CHOLESTEROL 45 MG/DL (>40); IRON (FE) 70 UG/DL (65-175); LDL CHOLESTEROL 108 MG/DL (<100); MAGNESIUM LEVEL 1.9 MG/DL (1.8-2.4); NON-HDL-C 128 MG/DL; PERCENT SATURATION 26.4 % (19.7-50.0); SODIUM LEVEL 139 MEQ/L (136-145); TOTAL IRON BINDING CAPACITY 265 UG/DL (250-450); TOTAL PROTEIN 6.7 GM/DL (6.4-8.2); TRIGLYCERIDES LEVEL 102 MG/DL (<150)
[2019-08-17 13:23] LABS: TOTAL 25(OH) VITAMIN D 15.5 NG/ML (30.0-100.0)
[2019-08-17 13:44] LABS: ERYTHROCYTE SEDIMENTATION RATE 17 mm/hr (0-20)
[2019-08-17 13:58] LABS: HEMOGLOBIN A1c 5.8 %
[2019-08-19 00:06] LABS: ANA (HEP2) Negative (.); Lyme Disease IgG/IgM Antibodie <0.91 ISR (0.00-0.90); Lyme Disease IgM Ab Quantitati <0.80 index (0.00-0.79)
== END ==
LOC: M SFHCADAM 09:19
PROVIDERS: ATTEND Physician Assistant Medical
DX: I11.9 Hypertensive heart disease without heart failure (principal); I50.32 Chronic diastolic (congestive) heart failure; E78.2 Mixed hyperlipidemia; E66.01 Morbid (severe) obesity due to excess calories; K21.9 Gastro-esophageal reflux disease without esophagitis; D50.9 Iron deficiency anemia, unspecified; M25.50 Pain in unspecified joint; M79.10 Myalgia, unspecified site

== ENCOUNTER → 2019-08-17 | Outpatient (CLI) | payer OTHER ==
--- NOTE | 2019-08-17 10:20 | REP ---
Clinical: Right-sided back pain. Technique: AP, lateral, bilateral oblique and coned-down views of the lumbosacral spine. Findings: Alignment and lordosis maintained. There is no evidence for acute fracture / compression injury or subluxation. Moderate multilevel degenerative changes throughout the visualized lower thoracic and lumbosacral spine includes bridging osteophytosis, endplate sclerosis, and hypertrophic facet changes. Moderate disc space narrowing and L5-S1 also identified. Impression: Moderate multilevel degenerative spondylosis through the visualized lower thoracic and lumbosacral spine. Electronically Signed by Odilon Blount MD 08/17/2019 10:11 A
== END ==
LOC: M ADAMS 09:48
PROVIDERS: ATTEND Physician Assistant Medical
DX: M47.814 Spondylosis without myelopathy or radiculopathy, thoracic region (principal); M47.817 Spondylosis without myelopathy or radiculopathy, lumbosacral region

== ENCOUNTER → 2019-09-28 | Outpatient (CLI) | payer OTHER ==
[~2019-09-28] MED LIST changes: +FLUO10CA15 PO; -FLUO10CA8 PO
--- NOTE | 2019-09-30 06:22 | ECHO ---
DATE OF STUDY: 09/28/2019 REFERRING PROVIDER: JARETT Rice INDICATION: Systemic hypertension. HEIGHT: 69 inches. WEIGHT: 272 pounds. 2-D MEASUREMENTS: Left atrium: 3.5 cm Aortic root: 3.4 cm Left ventricle diastole: 4.3 cm Ventricular septum: 1.55 cm Posterior wall: 1.61 cm Aortic annulus: 2.3 cm DOPPLER MEASUREMENTS: Aortic valve velocity: 123 cm/sec LVOT velocity: 97.5 cm/sec LVOT VTI: 19.2 cm No aortic regurgitation No mitral regurgitation Trace tricuspid regurgitation No pulmonic regurgitation Mitral E velocity: 57.2 cm/sec Mitral A velocity: 83.4 cm/sec MITRAL ANNULAR TISSUE DOPPLER: E prime septal: 7.5 cm/sec E prime lateral: 6.0 cm/sec DESCRIPTION: The rhythm was sinus. This was a moderately technically difficult echocardiogram. No pericardial effusion. This was a 2-D, M-mode, color flow Doppler and pulse wave Doppler examination and included mitral annular tissue Doppler. CONCLUSIONS: 1. Moderately-severe concentric left ventricular hypertrophy. Hyperdynamic LV systolic function. LVEF 75% by visual estimate. No regional wall motion abnormalities of the left ventricle. Grade 1 LV diastolic dysfunction. 2. Otherwise normal appearing echocardiogram Doppler findings.
== END ==
LOC: M CARPUL 10:18
PROVIDERS: ATTEND Physician Assistant Medical
DX: I11.0 Hypertensive heart disease with heart failure (principal); I50.32 Chronic diastolic (congestive) heart failure

== ENCOUNTER → 2019-10-29 | Outpatient (REF) | payer OTHER ==
[~2019-10-29] MED LIST changes: -FLUO20CA19; +FLUO20CA22
[2019-10-29 15:57] LABS: BLOOD UREA NITROGEN 14 MG/DL (7-18); CALCIUM LEVEL 9.3 MG/DL (8.5-10.1); CARBON DIOXIDE LEVEL 30 MEQ/L (21-32); CHLORIDE LEVEL 104 MEQ/L (98-107); CREATININE FOR GFR 0.84 MG/DL (0.70-1.30); GLOMERULAR FILTRATION RATE > 60.0 (>56); GLUCOSE, FASTING 86 MG/DL (70-100); POTASSIUM SERUM 4.3 MEQ/L (3.5-5.1); SODIUM LEVEL 139 MEQ/L (136-145)
== END ==
LOC: M SFHCADAM 13:29
PROVIDERS: ATTEND Physician Assistant Medical
DX: I50.32 Chronic diastolic (congestive) heart failure (principal)

== ENCOUNTER → 2019-11-09 | Outpatient (REF) | payer OTHER ==
[2019-11-09 13:27] LABS: BASO # 0.1 10^3/uL (0.0-0.2); BASO % 0.7 % (0.0-1.0); EOS # 0.3 10^3/uL (0.0-0.5); EOS % 3.3 % (0.0-3.0); HEMATOCRIT 44.7 % (42.0-52.0); HEMOGLOBIN 14.9 g/dl (13.5-17.5); LYMPH # 2.1 10^3/uL (1.5-5.0); LYMPH % 24.9 % (24.0-44.0); MEAN CORPUSCULAR HEMOGLOBIN 30.9 pg (27.0-33.0); MEAN CORPUSCULAR HGB CONC 33.3 g/dl (32.0-36.5); MEAN CORPUSCULAR VOLUME 92.7 fl (80.0-96.0); MONO # 0.4 10^3/uL (0.0-0.8); MONO % 5.1 % (0.0-5.0); NEUTROPHILS # 5.3 10^3/uL (1.5-8.5); NEUTROPHILS % 64.8 % (36.0-66.0); PLATELET COUNT, AUTOMATED 180 10^3/uL (150-450); RED BLOOD COUNT 4.82 10^6/uL (4.30-6.10); WHITE BLOOD COUNT 8.2 10^3/uL (4.0-10.0)
[2019-11-09 13:36] LABS: INR 0.99; PROTHROMBIN TIME 12.7 SECONDS (11.8-14.0)
[2019-11-09 13:37] LABS: PARTIAL THROMBOPLASTIN TIME 29.4 SECONDS (25.0-38.4)
[2019-11-09 13:45] LABS: APPEARANCE, URINE MANUAL CLEAR (CLEAR); COLOR, URINE MANUAL LT YELLOW (YELLOW)
[2019-11-09 13:46] LABS: BILIRUBIN, URINE MANUAL NEGATIVE (NEGATIVE); BLOOD URINE MANUAL NEGATIVE (NEGATIVE); GLUCOSE, URINE (UA) MANUAL NEGATIVE (NEGATIVE); KETONE, URINE MANUAL NEGATIVE (NEGATIVE); LEUKOCYTE ESTERASE, URINE MAN NEGATIVE (NEGATIVE); NITRITE, URINE MANUAL NEGATIVE (NEGATIVE); PROTEIN, URINE MANUAL NEGATIVE (NEGATIVE); SPECIFIC GRAVITY,URINE MANUAL 1.015 (1.002-1.035); UROBILINOGEN, URINE MANUAL NORMAL (NORMAL)
[2019-11-09 13:52] LABS: ALT/SGPT 35 U/L (12-78); BILIRUBIN,TOTAL 0.6 MG/DL (0.2-1.0); BLOOD UREA NITROGEN 16 MG/DL (7-18); CALCIUM LEVEL 9.5 MG/DL (8.5-10.1); CARBON DIOXIDE LEVEL 27 MEQ/L (21-32); CHLORIDE LEVEL 105 MEQ/L (98-107); CREATININE FOR GFR 0.85 MG/DL (0.70-1.30); FERRITIN 326 NG/ML (26-388); GLOMERULAR FILTRATION RATE > 60.0 (>56); GLUCOSE, FASTING 135 MG/DL (70-100); IRON (FE) 123 UG/DL (65-175); PERCENT SATURATION 42.7 % (19.7-50.0); POTASSIUM SERUM 3.6 MEQ/L (3.5-5.1); SODIUM LEVEL 139 MEQ/L (136-145); TOTAL IRON BINDING CAPACITY 288 UG/DL (250-450); TOTAL PROTEIN 6.9 GM/DL (6.4-8.2)
== END ==
LOC: M SFHCADAM 10:56
PROVIDERS: ATTEND Family Medicine
DX: D50.9 Iron deficiency anemia, unspecified (principal); Z01.818 Encounter for other preprocedural examination; F34.1 Dysthymic disorder; I10 Essential (primary) hypertension

== ENCOUNTER 2019-12-20 08:08 | Outpatient (RCR) | payer OTHER | END 2019-12-21 | LOC: M PT 08:08 | PROVIDERS: ATTEND Orthopaedic Surgery | DX: Z51.89 Encounter for other specified aftercare (principal); Z47.1 Aftercare following joint replacement surgery ==

== ENCOUNTER 2020-01-17 08:08 | Outpatient (RCR) | payer OTHER ==
[~2020-01-17 08:08] MED LIST changes: +CYCL-707 PO; -CYCL10TA PO
== END 2020-01-20 ==
LOC: M PT 08:08
PROVIDERS: ATTEND Orthopaedic Surgery
DX: Z96.652 Presence of left artificial knee joint (principal)

== ENCOUNTER → 2020-03-08 | Outpatient (REF) | payer OTHER ==
[2020-03-08 12:01] LABS: BASO # 0.1 10^3/uL (0.0-0.2); BASO % 0.9 % (0.0-1.0); EOS # 0.3 10^3/uL (0.0-0.5); EOS % 4.7 % (0.0-3.0); HEMATOCRIT 42.7 % (42.0-52.0); HEMOGLOBIN 14.2 g/dl (13.5-17.5); LYMPH # 1.9 10^3/uL (1.5-5.0); LYMPH % 26.7 % (24.0-44.0); MEAN CORPUSCULAR HEMOGLOBIN 31.4 pg (27.0-33.0); MEAN CORPUSCULAR HGB CONC 33.3 g/dl (32.0-36.5); MEAN CORPUSCULAR VOLUME 94.5 fl (80.0-96.0); MONO # 0.6 10^3/uL (0.0-0.8); MONO % 7.8 % (0.0-5.0); NEUTROPHILS # 4.1 10^3/uL (1.5-8.5); NEUTROPHILS % 58.9 % (36.0-66.0); PLATELET COUNT, AUTOMATED 181 10^3/uL (150-450); RED BLOOD COUNT 4.52 10^6/uL (4.30-6.10)
[2020-03-08 12:10] LABS: ALBUMIN 3.6 GM/DL (3.2-5.2); ALT/SGPT 30 U/L (12-78); BILIRUBIN,TOTAL 0.5 MG/DL (0.2-1.0); BLOOD UREA NITROGEN 18 MG/DL (7-18); CALCIUM LEVEL 9.1 MG/DL (8.5-10.1); CARBON DIOXIDE LEVEL 32 MEQ/L (21-32); CHLORIDE LEVEL 103 MEQ/L (98-107); CHOLESTEROL LEVEL 204 MG/DL (<200); CHOLESTEROL RISK RATIO 4.636 (<5); CREATININE FOR GFR 0.87 MG/DL (0.70-1.30); GLOMERULAR FILTRATION RATE > 60.0 (>56); GLUCOSE, FASTING 94 MG/DL (70-100); HDL CHOLESTEROL 44 MG/DL (>40); LDL CHOLESTEROL 129 MG/DL (<100); NON-HDL-C 160 MG/DL; POTASSIUM SERUM 4.2 MEQ/L (3.5-5.1); SODIUM LEVEL 138 MEQ/L (136-145); TOTAL PROTEIN 6.7 GM/DL (6.4-8.2); TRIGLYCERIDES LEVEL 155 MG/DL (<150)
== END ==
LOC: M PLALAB 08:17
PROVIDERS: ATTEND Physician Assistant Medical
DX: I11.9 Hypertensive heart disease without heart failure (principal); E78.2 Mixed hyperlipidemia; E66.01 Morbid (severe) obesity due to excess calories

== ENCOUNTER → 2020-04-24 | Outpatient (CLI) | payer OTHER ==
[~2020-04-24] MED LIST changes: +AMLO1TAB24 PO; -AMLO5TAB6 PO; -FLUO10CA15 PO; +FLUO10CA16 PO; +PANT40TA29 PO; -PANT40TA3 PO
== END ==
LOC: M LAB 14:30
PROVIDERS: ATTEND Nurse Practitioner Adult Health
DX: M25.562 Pain in left knee (principal); Z96.659 Presence of unspecified artificial knee joint

== ENCOUNTER 2020-05-19 08:10 | Outpatient (RCR) | payer OTHER | END 2020-05-22 | disposition home or self-care (01) | LOC: M PT 08:10 | PROVIDERS: ATTEND Nurse Practitioner Adult Health | DX: M25.562 Pain in left knee (principal); Z96.659 Presence of unspecified artificial knee joint ==

== ENCOUNTER 2020-06-02 07:30 | Outpatient (RCR) | payer OTHER | END 2020-06-21 | LOC: M PT 07:30 | PROVIDERS: ATTEND Nurse Practitioner Adult Health | DX: M25.562 Pain in left knee (principal); Z96.652 Presence of left artificial knee joint ==

== ENCOUNTER 2020-08-20 07:40 | Observation (INO) | payer OTHER ==
[~2020-08-20] VITALS: Ht 175.3 cm; Wt 122.3 kg
[2020-08-20] MEDS ORDERED: LORA-674 PO (08:04)
[2020-08-20] MEDS ORDERED: BUPR1TAB52 PO (08:04)
[2020-08-20] MEDS ORDERED: FERR325T18 PO (08:04)
[2020-08-20] MEDS ORDERED: FURO40TA2 PO (08:04)
[2020-08-20] MEDS ORDERED: NS 1,000 ML IV ONE (08:15)
[2020-08-20] MEDS ORDERED: PROMETHAZINE INJ 25 MG/ML VIAL (J2550) IV ONE (08:15)
[2020-08-20 08:49] LABS: BASO # 0.1 10^3/uL (0.0-0.2); BASO % 0.7 % (0.0-1.0); EOS # 0.2 10^3/uL (0.0-0.5); EOS % 1.7 % (0.0-3.0); HEMATOCRIT 43.7 % (42.0-52.0); HEMOGLOBIN 14.8 g/dl (13.5-17.5); LYMPH # 1.9 10^3/uL (1.5-5.0); LYMPH % 19.1 % (24.0-44.0); MEAN CORPUSCULAR HEMOGLOBIN 31.2 pg (27.0-33.0); MEAN CORPUSCULAR HGB CONC 33.9 g/dl (32.0-36.5); MONO # 0.5 10^3/uL (0.0-0.8); MONO % 5.1 % (0.0-5.0); NEUTROPHILS # 7.3 10^3/uL (1.5-8.5); NEUTROPHILS % 71.9 % (36.0-66.0); PLATELET COUNT, AUTOMATED 221 10^3/uL (150-450); RED BLOOD COUNT 4.75 10^6/uL (4.30-6.10); WHITE BLOOD COUNT 10.1 10^3/uL (4.0-10.0)
--- NOTE | 2020-08-20 08:51 | REP ---
INDICATION: vertigo >24 hours COMPARISON: 11/22/2015 TECHNIQUE: Axial noncontrast images from the skull base to the vertex with coronal reformations. This CT examination was performed using the following dose reduction techniques: Automated exposure control, adjustment of mA and/or kv according to the patient's size, and use of iterative reconstruction technique. FINDINGS: The ventricles, sulci, and cisterns are normal in position and appearance. Terrazas-white differentiation is maintained. No acute intracranial hemorrhage, mass/mass effect, pathology or trauma/injury. No evidence for acute infarction. No extra-axial fluid collection. Calvarium is intact. Paranasal sinuses and mastoid air cells are clear. IMPRESSION: Normal noncontrast head CT. No evidence for acute intracranial pathology or trauma/injury. <Electronically signed by Odilon Blount > 08/20/20 [id number]
[2020-08-20] MEDS ORDERED: lisinopriL 40 MG TAB PO SCH (09:00)
[2020-08-20] MEDS ORDERED: amLODIPine 5 MG TAB PO SCH (09:00)
[2020-08-20] MEDS ORDERED: hydroCHLOROthiazide 25 MG TAB PO SCH (09:00)
[2020-08-20 09:16] LABS: ALBUMIN 2.8 GM/DL (3.2-5.2); ALT/SGPT 30 U/L (12-78); BILIRUBIN,TOTAL 0.7 MG/DL (0.2-1.0); BLOOD UREA NITROGEN 15 MG/DL (7-18); CALCIUM LEVEL 9.4 MG/DL (8.5-10.1); CARBON DIOXIDE LEVEL 26 MEQ/L (21-32); CHLORIDE LEVEL 104 MEQ/L (98-107); CK-MB VALUE MASS 1.1 NG/ML (<3.6); CPK CREATINE PHOSPHOKINASE 87 U/L (39-308); ETHYL ALCOHOL (ETHANOL) < 0.003 % (0.000-0.010); GLOMERULAR FILTRATION RATE > 60.0 (>56); GLUCOSE, FASTING 145 MG/DL (70-100); MB/CK RELATIVE INDEX 1.26 (< OR =4); POTASSIUM SERUM 4.4 MEQ/L (3.5-5.1); SODIUM LEVEL 138 MEQ/L (136-145); TOTAL PROTEIN 7.1 GM/DL (6.4-8.2); TROPONIN I < 0.02 NG/ML (< 0.10)
[2020-08-20] MEDS ORDERED: MECLIZINE 25 MG TABLET PO ONE (09:45)
[2020-08-20] MEDS ORDERED: ONDANSETRON 4MG/2ML VIAL IV ONE (09:45)
--- NOTE | 2020-08-20 12:23 | REPVR ---
PROCEDURE INFORMATION: Exam: MR Head Without Contrast Exam date and time: 08/20/2020 11:55 AM Age: 54 years old Clinical indication: Dizziness and visual disturbance and other: Nausea; Patient HX: PT states having extreme dizziness and feels off balance along with nausea; Additional info: Vertigo TECHNIQUE: Imaging protocol: MR of the head without contrast. 3D rendering (Not supervised by radiologist): MIP and/or 3D reconstructed images were created by the technologist. COMPARISON: CT Head without contrast 08/20/2020 8:20 AM FINDINGS: Brain: Mild generalized cerebral volume loss. There are a moderate number of scattered foci of white matter T2 hyperintensity, nonspecific but commonly secondary to chronic small vessel ischemic change. No acute ischemic infarction. No acute intracranial hemorrhage. Thin 3D T2 weighted imaging through the brainstem demonstrates normal T2 hyperintensity within the inner ear endolymphatic structures, with no appreciable T1 shortening on axial T1 images. Normal noncontrast appearance of the imaged cranial nerves, with attention to the 7th and 8th cranial nerve complex and cerebellopontine angles with no CPA/IAC mass allowing for noncontrast imaging. Cerebral ventricles: No ventriculomegaly. Bones/joints: Unremarkable. Paranasal sinuses: Mild paranasal sinus mucosal thickening. Mastoid air cells: Minimal fluid within the left mastoid air cells. Orbits: Unremarkable. Soft tissues: Several small nasopharyngeal cysts are noted. IMPRESSION: No acute intracranial abnormality. Electronically signed by: Suresh Gardiner On 08/20/2020 12:23:18 PM
[2020-08-20] MEDS ORDERED: ONDA4TAB6 PO (13:00)
[2020-08-20] MEDS ORDERED: MECL1TAB31 PO (13:00)
[2020-08-20] MEDS ORDERED: Physical Therapy (13:03)
[2020-08-20] MEDS ORDERED: LISI40TA PO (14:20)
[2020-08-20] MEDS ORDERED: HYDR25TAB PO (14:20)
[2020-08-20] MEDS ORDERED: ACET500T15 PO (14:20)
[2020-08-20] MEDS ORDERED: KETO2SHA8 TOP (14:20)
[2020-08-20] MEDS ORDERED: ACETAMINOPHEN 500 MG TAB PO PRN (14:45)
[2020-08-20] MEDS ORDERED: ONDANSETRON 4MG/2ML VIAL IV PRN (15:00)
[2020-08-20] MEDS ORDERED: PROMETHAZINE INJ 25 MG/ML VIAL (J2550) IV PRN (15:00)
[2020-08-20] MEDS ORDERED: MECLIZINE 25 MG TABLET PO PRN (15:30)
--- NOTE | 2020-08-20 16:34 | HPEPDOC ---
[facility] Medical History & Physical Date of Admission Aug 20, 2020 Date of Service: Aug 20, 2020 Attending Physician: MINDY PENNINGTON MD History and Physical CHIEF COMPLAINT: Dizziness with spinning sensation and nausea and vomiting HISTORY OF PRESENT ILLNESS: 54 yo man with a history of morbid obesity, HTN, HLD, RADHA on CPAP, GERD, remote alcohol misuse disorder, DENTON, MDD and anxiety who presented to the ED with episodic dizziness with spinning sensation with associated nausea and vomiting that began yesterday , had self resolved but overnight when he woke up to use the bathroom, he again became acutely vertiginous and had to hang on to furniture to get back to bed. This morning he had more episodes and by the time he was having bilious emesis he called EMS and presented to the ED. He reports that 4d prior to presentation, he was in his [place] and went hunting wit some friends and had dinner at their home and also the next day. He has otherwise been home since and denies any fever, chills, rhinorrhea, congestion, diarrhea, loss of consciousness, speech slurring, asymmetric weakness or headaches. In the ED he was hypertensive to 170s/100s and reported not having taken his antihypertensives today because of the N/V. He became acute vertiginous such that he had to close his eyes on eye movements part of the neurological examination or on attempt to get up. He had multiple N/V episodes and was given ondansetron and promethazine with resolution of the nausea and emesis. Given the severity of his symptoms without a history of prior vertigo he had a CT head that showed no acute pathology and had an MRI brain that was also without noted pathology. WBC was 10.1, hgb 14.8, platelets 221, na 138, K 4.4, Cr 1 and LFTs, troponin, TSH, calcium and alcohol level were wnl. He is now being admitted for severe episodic vertigo with inability to ambulate. 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 OBJECTIVE: GEN: NAD, middle aged, morbidly obese, well-nourished, well developed. Pleasant, great historian. HEENT: Normocephalic, atraumatic. Pupils are equal, round, and reactive to light. Extraocular movements are intact. Moist mucous membranes. Poor dentition. NECK: Supple, trachea midline, no lymphadenopathy or thyromegaly appreciated. CARDIAC: Regular rate and rhythm, +S1, +S2, no m/r/g LUNGS: Clear to auscultation bilaterally. No wheezes, rales, or rhonchi. Speaking in full sentences ABDOMEN: Round, obese, soft, non-tender, non-distended. Normoactive bowel sounds throughout. No rebound or guarding EXT: Pulses 2+ bilaterally dorsalis pedis and radial. No lower extremity edema appreciated. SKIN: No rashes, warm, dry NEURO: Alert and oriented x 3. Cranial nerves III-XII are intact. +horizontal nystagmus on testing CN 3, 4 and 6. Moving all extremities spontaneously. Clear speech EKG: NSR Labs: Summarized above Imaging: Noncontrast head CT: No evidence for acute intracranial pathology or trauma/injury. MRI no contrast: Brain: Mild generalized cerebral volume loss. There are a moderate number of scattered foci of white matter T2 hyperintensity, nonspecific but commonly secondary to chronic small vessel ischemic change. No acute ischemic infarction. No acute intracranial hemorrhage. Thin 3D T2 weighted imaging through the brainstem demonstrates normal T2 hyperintensity within the inner ear endolymphatic structures, with no appreciable T1 shortening on axial T1 images. Normal noncontrast appearance of the imaged cranial nerves, with attention to the 7th and 8th cranial nerve complex and cerebellopontine angles with no CPA/IAC mass allowing for noncontrast imaging. Cerebral ventricles: No ventriculomegaly. Bones/joints: Unremarkable. Paranasal sinuses: Mild paranasal sinus mucosal thickening. Mastoid air cells: Minimal fluid within the left mastoid air cells. Orbits: Unremarkable. Soft tissues: Several small nasopharyngeal cysts are noted. IMPRESSION: No acute intracranial abnormality. Assessment: 54 yo man with a history of morbid obesity, HTN, HLD, RADHA on CPAP, GERD, remote alcohol misuse disorder, DENTON, MDD and anxiety who presented to the ED with episodic dizziness with spinning sensation with associated nausea and vomiting without any clear precipitants or other recent illness, most likely c/w BPPV. Vertigo c/f BPPV -meclizine 25mg q6HP -Ondansetron and promethazine PRN -PT/OT -CT head and MRI were without attributable pathology noted. wnl. -f/u covid-19 rapid test HTN. -Continue hydrochlorothiazide 25 mg daily, lisinopril 40 mg daily and amlodipine 5mg daily. Give now doses as he missed his AM doses and is currently hypertensive Dyslipidemia. -Continue Lipitor 40 mg daily. GERD. -Continue omeprazole 40mg BID per home script Iron deficiency. -Continue ferrous sulfate 325 mg by mouth daily. Depression. -Bupropion 100mg PO daily -Sertraline 75mg PO daily RADHA. -Nightly CPAP DVT: lovenox QD Dispo: Observation with PT/OT for potential home discharge tomorrow Vital Signs Vital Signs Date Time Temp Pulse Resp B/P (MAP) Pulse Ox O2 Delivery O2 Flow Rate FiO2 08/20/20 11:15 80 16 95 Room Air 08/20/20 11:01 167/105 (125) 08/20/20 07:45 97.5 Laboratory Data Labs 24H Laboratory Tests 2 08/20/20 08:28: Immature Granulocyte % (Auto) 1.5, Neutrophils (%) (Auto) 71.9H, Lymphocytes (%) (Auto) 19.1L, Monocytes (%) (Auto) 5.1H, Eosinophils (%) (Auto) 1.7, Basophils (%) (Auto) 0.7, Neutrophils # (Auto) 7.3, Lymphocytes # (Auto) 1.9, Monocytes # (Auto) 0.5, Eosinophils # (Auto) 0.2, Basophils # (Auto) 0.1, Nucleated Red Blood Cells % (auto) 0.0, Anion Gap 8, Glomerular Filtration Rate > 60.0, Calcium Level 9.4, Total Bilirubin 0.7, Aspartate Amino Transf (AST/SGOT) 15, Alanine Aminotransferase (ALT/SGPT) 30, Alkaline Phosphatase 94, Total Creatine Kinase 87, Creatine Kinase MB 1.1, Creatine Kinase MB Relative Index 1.26, Troponin I < 0.02, Total Protein 7.1, Albumin 2.8L, Albumin/Globulin Ratio 0.7, Thyroid Stimulating Hormone (TSH) 2.330, Ethyl Alcohol Level < 0.003 08/20/20 14:32: Coronavirus (COVID-19)(PCR) NEGATIVE CBC/BMP Laboratory Tests 08/20/20 08:28 Home Medications Scheduled Amlodipine Besylate (Amlodipine Besylate) 5 Mg Tab, 5 MG PO DAILY Atorvastatin Calcium (Atorvastatin Calcium) 40 Mg Tab, 40 MG PO DAILY Bupropion HCl (Bupropion HCl Sr) 100 Mg Tab.sr.12h, 100 MG PO DAILY Ferrous Sulfate (Ferrous Sulfate) 325 Mg Tablet, 325 MG PO DAILY Furosemide (Furosemide) 40 Mg Tablet, 40 MG PO DAILY Hydrochlorothiazide (Hydrochlorothiazide) 25 Mg Tablet, 25 MG PO DAILY Ketoconazole (Ketoconazole) 120 Ml Shampoo, 1 DOSE TOP QWEEK Lisinopril (Lisinopril) 40 Mg Tablet, 40 MG PO DAILY Loratadine (Loratadine) 10 Mg Tablet, 10 MG PO DAILY Omeprazole (Omeprazole) 40 Mg Capsule.dr, 40 MG PO BID Sertraline HCl (Sertraline HCl) 50 Mg Tab, 75 MG PO DAILY Scheduled PRN Acetaminophen (Acetaminophen) 500 Mg Tablet, 500 MG PO Q4H PRN for PAIN Meclizine HCl (Meclizine HCl) 25 Mg Tablet, 25 MG PO Q6HP PRN for vertigo Ondansetron (Ondansetron Odt) 4 Mg Tab.rapdis, 1 TAB PO Q6-8HP PRN for nausea/vomiting Allergies Coded Allergies: oxycodone (Verified Adverse Reaction, Unknown, n/v, dizziness, 08/20/20) A-FIB/CHADSVASC A-FIB History Current/History of A-Fib/PAF?: No Current PO Anticoag Therapy: No Age/Risk Factor Scoring CHADSVASC: CHADSVASC Response (Comments) Value Age Risk Factor Age < 65 years old 0 Gender Risk Factor Male 0 Hx of CHF No 0 Hx of HTN Yes 1 Hx of Stroke/TIA/or VTE No 0 Hx of Diabetes No 0 Hx of Vascular Disease No 0 Total 1 Treatment Treatment ordered: NONE Reason Anticoagulant not given: Not indicated/[id number] MINDY PENNINGTON MD Aug 20, 2020 16:34
[2020-08-20 17:00] VITALS: BP 154/108
[2020-08-20] MEDS: hydroCHLOROthiazide 25 MG TAB PO SCH (17:27)
[2020-08-20] MEDS: SERTRALINE HCL 25 MG TABLET PO SCH (17:27)
[2020-08-20] MEDS: amLODIPine 5 MG TAB PO SCH (17:28)
[2020-08-20] MEDS: ATORVASTATIN 20 MG TAB PO SCH (17:28)
[2020-08-20] MEDS: FUROSEMIDE 40 MG TAB PO SCH (17:28)
[2020-08-20] MEDS: lisinopriL 40 MG TAB PO SCH (17:28)
[2020-08-20] MEDS: ACETAMINOPHEN TAB 650MG DOSE (2X325MG) PO PRN ×2 (17:29→18:43)
[2020-08-20] MEDS: FERROUS SULFATE 325MG TAB PO SCH (17:29)
[2020-08-20] MEDS: LORATADINE 10 MG TAB PO SCH (17:29)
[2020-08-20] MEDS: buPROPion (WELLBUTRIN SR) 100 MG SR TAB PO SCH (18:43)
[2020-08-20] MEDS: OMEPRAZOLE 20 MG CAP PO SCH (20:16)
[2020-08-20] MEDS: ENOXAPARIN 40MG/0.4ML SYRINGE (J1650 PER 10MG) SC SCH (20:17)
--- NOTE | 2020-08-20 20:37 | ECGEPIP ---
[facility] - ED Test Date: 2020-08-20 Pat Name: GAB WHITAKER Department: Room: - Gender: Male Rehabilitation Tech: poly : [id number] Requested By: MADELEINE Armenta Order Number: [id number] Reading MD: Marly Núñez Measurements Intervals [place] Rate: 68 P: 65 MD: 157 QRS: 37 QRSD: 114 T: 62 QT: 436 QTc: 465 Interpretive Statements SINUS RHYTHM MODERATE INTRAVENTRICULAR CONDUCTION DELAY PROLONGED QTC COMPARED 09/24/17 Electronically Signed on 08-20-2020 20:37:27 EST by Marly Núñez
[2020-08-20 22:00] VITALS: BP 152/98
[2020-08-21] MEDS: ACETAMINOPHEN TAB 650MG DOSE (2X325MG) PO PRN (00:48)
[2020-08-21 06:00] VITALS: BP 141/99
[2020-08-21 06:15] LABS: HEMATOCRIT 42.4 % (42.0-52.0); HEMOGLOBIN 13.6 g/dl (13.5-17.5); MEAN CORPUSCULAR HEMOGLOBIN 30.2 pg (27.0-33.0); MEAN CORPUSCULAR HGB CONC 32.1 g/dl (32.0-36.5); PLATELET COUNT, AUTOMATED 194 10^3/uL (150-450); RED BLOOD COUNT 4.51 10^6/uL (4.30-6.10)
[2020-08-21 06:38] LABS: BLOOD UREA NITROGEN 13 MG/DL (7-18); CALCIUM LEVEL 8.9 MG/DL (8.5-10.1); CARBON DIOXIDE LEVEL 31 MEQ/L (21-32); CHLORIDE LEVEL 102 MEQ/L (98-107); CREATININE FOR GFR 0.99 MG/DL (0.70-1.30); GLOMERULAR FILTRATION RATE > 60.0 (>56); GLUCOSE, FASTING 106 MG/DL (70-100); MAGNESIUM LEVEL 2.3 MG/DL (1.8-2.4); POTASSIUM SERUM 3.9 MEQ/L (3.5-5.1); SODIUM LEVEL 136 MEQ/L (136-145)
[2020-08-21 09:30] VITALS: BP_SYST 156; BP_SYST 159; BP_SYST 160; BP_DIAS 102; BP_DIAS 103
[2020-08-21 09:35] VITALS: BP 149/96
[2020-08-21] MEDS: hydroCHLOROthiazide 25 MG TAB PO SCH (09:35)
[2020-08-21] MEDS: buPROPion (WELLBUTRIN SR) 100 MG SR TAB PO SCH (09:35)
[2020-08-21] MEDS: FERROUS SULFATE 325MG TAB PO SCH (09:35)
[2020-08-21] MEDS: SERTRALINE HCL 25 MG TABLET PO SCH (09:36)
[2020-08-21] MEDS: ATORVASTATIN 20 MG TAB PO SCH (09:36)
[2020-08-21] MEDS: OMEPRAZOLE 20 MG CAP PO SCH ×2 (09:36→20:01)
[2020-08-21] MEDS: LORATADINE 10 MG TAB PO SCH (09:36)
[2020-08-21] MEDS: lisinopriL 40 MG TAB PO SCH (09:36)
[2020-08-21] MEDS: FUROSEMIDE 40 MG TAB PO SCH (09:36)
[2020-08-21] MEDS: amLODIPine 5 MG TAB PO SCH (09:40)
--- NOTE | 2020-08-21 12:45 | IPNPDOC ---
Text Note Date of Service The patient was seen on 08/21/20. NOTE SUBJECTIVE: -No acute events overnight OBJECTIVE: GEN: NAD, middle aged, morbidly obese, well-nourished, well developed. Pleasant, great historian. HEENT: Normocephalic, atraumatic. Pupils are equal, round, and reactive to light. Extraocular movements are intact. Moist mucous membranes. Poor dentition. NECK: Supple, trachea midline, no lymphadenopathy or thyromegaly appreciated. CARDIAC: Regular rate and rhythm, +S1, +S2, no m/r/g LUNGS: Clear to auscultation bilaterally. No wheezes, rales, or rhonchi. Speaking in full sentences ABDOMEN: Round, obese, soft, non-tender, non-distended. Normoactive bowel sounds throughout. No rebound or guarding EXT: Pulses 2+ bilaterally dorsalis pedis and radial. No lower extremity edema appreciated. SKIN: No rashes, warm, dry NEURO: Alert and oriented x 3. Cranial nerves III-XII are intact. Left horizontal nystagmus on testing CN 3, 4 and 6 this morning. Moving all extremities spontaneously. Clear speech EKG: NSR Labs: Summarized above Imaging: Noncontrast head CT: No evidence for acute intracranial pathology or trauma/injury. MRI no contrast: Brain: Mild generalized cerebral volume loss. There are a moderate number of scattered foci of white matter T2 hyperintensity, nonspecific but commonly secondary to chronic small vessel ischemic change. No acute ischemic infarction. No acute intracranial hemorrhage. Thin 3D T2 weighted imaging through the brainstem demonstrates normal T2 hyperintensity within the inner ear endolymphatic structures, with no appreciable T1 shortening on axial T1 images. Normal noncontrast appearance of the imaged cranial nerves, with attention to the 7th and 8th cranial nerve complex and cerebellopontine angles with no CPA/IAC mass allowing for noncontrast imaging. Cerebral ventricles: No ventriculomegaly. Bones/joints: Unremarkable. Paranasal sinuses: Mild paranasal sinus mucosal thickening. Mastoid air cells: Minimal fluid within the left mastoid air cells. Orbits: Unremarkable. Soft tissues: Several small nasopharyngeal cysts are noted. IMPRESSION: No acute intracranial abnormality. Assessment: 54 yo man with a history of morbid obesity, HTN, HLD, RADHA on CPAP, GERD, remote alcohol misuse disorder, DENTON, MDD and anxiety who presented to the ED with episodic dizziness with spinning sensation with associated nausea and vomiting without any clear precipitants or other recent illness, most likely c/w BPPV. Vertigo c/f BPPV -meclizine 25mg q6HP -Ondansetron and promethazine PRN -PT/OT -CT head and MRI were without attributable pathology noted. wnl. -f/u covid-19 rapid test HTN. -Continue hydrochlorothiazide 25 mg daily, lisinopril 40 mg daily and amlodipine 5mg daily. Give now doses as he missed his AM doses and is currently hyperten sive Dyslipidemia. -Continue Lipitor 40 mg daily. GERD. -Continue omeprazole 40mg BID per home script Iron deficiency. -Continue ferrous sulfate 325 mg by mouth daily. Depression. -Bupropion 100mg PO daily -Sertraline 75mg PO daily RADHA. -Nightly CPAP DVT: lovenox QD Dispo: Observation with PT/OT for potential home discharge later today vs. tomorrow VS,Vicky, I+O VS, Vicky, I+O Laboratory Tests 08/21/20 05:52 Vital Signs Date Time Temp Pulse Resp B/P (MAP) Pulse Ox O2 Delivery O2 Flow Rate FiO2 08/21/20 06:00 98.0 83 18 141/99 (113) 96 08/20/20 17:00 Room Air I&O- Last 24 Hours up to 6 AM 08/21/20 06:00 Intake Total 1510 ml Output Total 450 ml Balance 1060 ml MINDY PENNINGTON MD Aug 21, 2020 09:04
[2020-08-21 13:43] VITALS: BP 148/87
[2020-08-21] MEDS: ENOXAPARIN 40MG/0.4ML SYRINGE (J1650 PER 10MG) SC SCH (20:02)
[2020-08-21 22:00] VITALS: BP 142/86
[2020-08-22 06:00] VITALS: BP 105/75
[2020-08-22 06:29] LABS: HEMOGLOBIN 14.6 g/dl (13.5-17.5); MEAN CORPUSCULAR HEMOGLOBIN 30.9 pg (27.0-33.0); MEAN CORPUSCULAR HGB CONC 33.2 g/dl (32.0-36.5); MEAN CORPUSCULAR VOLUME 93.2 fl (80.0-96.0); PLATELET COUNT, AUTOMATED 198 10^3/uL (150-450); RED BLOOD COUNT 4.72 10^6/uL (4.30-6.10); WHITE BLOOD COUNT 9.5 10^3/uL (4.0-10.0)
[2020-08-22 06:56] LABS: BLOOD UREA NITROGEN 13 MG/DL (7-18); CALCIUM LEVEL 9.4 MG/DL (8.5-10.1); CARBON DIOXIDE LEVEL 33 MEQ/L (21-32); CHLORIDE LEVEL 99 MEQ/L (98-107); CREATININE FOR GFR 1.06 MG/DL (0.70-1.30); GLOMERULAR FILTRATION RATE > 60.0 (>56); GLUCOSE, FASTING 93 MG/DL (70-100); POTASSIUM SERUM 3.9 MEQ/L (3.5-5.1); SODIUM LEVEL 136 MEQ/L (136-145)
[2020-08-22] MEDS: ATORVASTATIN 20 MG TAB PO SCH (09:46)
[2020-08-22] MEDS: LORATADINE 10 MG TAB PO SCH (09:46)
[2020-08-22] MEDS: OMEPRAZOLE 20 MG CAP PO SCH (09:46)
[2020-08-22] MEDS: hydroCHLOROthiazide 25 MG TAB PO SCH (09:46)
[2020-08-22] MEDS: SERTRALINE HCL 25 MG TABLET PO SCH (09:46)
[2020-08-22] MEDS: FERROUS SULFATE 325MG TAB PO SCH (09:46)
[2020-08-22] MEDS: FUROSEMIDE 40 MG TAB PO SCH (09:47)
[2020-08-22] MEDS: lisinopriL 40 MG TAB PO SCH (09:47)
[2020-08-22] MEDS: buPROPion (WELLBUTRIN SR) 100 MG SR TAB PO SCH (09:47)
[2020-08-22 09:48] VITALS: BP 126/90
[2020-08-22] MEDS: amLODIPine 5 MG TAB PO SCH (09:48)
--- NOTE | 2020-08-22 18:28 | DS.PDOC ---
Discharge Summary General Date of Admission Aug 20, 2020 at 07:41 Date of Discharge 08/22/20 Attending Physician: Anca Beasley MD Discharge Summary HISTORY OF PRESENT ILLNESS: 54 yo man with a history of morbid obesity, HTN, HLD, RADHA on CPAP, GERD, remote alcohol misuse disorder, DENTON, MDD and anxiety who presented to the ED with episodic dizziness with spinning sensation with ass ociated nausea and vomiting that began yesterday , had self resolved but overnight when he woke up to use the bathroom, he again became acutely vertiginous and had to hang on to furniture to get back to bed. This morning he had more episodes and by the time he was having bilious emesis he called EMS and presented to the ED. He reports that 4d prior to presentation, he was in his [place] and went hunting wit some friends and had dinner at their home and also the next day. He has otherwise been home since and denies any fever, chills, rhinorrhea, congestion, diarrhea, loss of consciousness, speech slurring, asymmetric weakness or headaches. In the ED he was hypertensive to 170s/100s and reported not having taken his antihypertensives today because of the N/V. He became acute vertiginous such t hat he had to close his eyes on eye movements part of the neurological examination or on attempt to get up. He had multiple N/V episodes and was given ondansetron and promethazine with resolution of the nausea and emesis. Given the severity of his symptoms without a history of prior vertigo he had a CT head that showed no acute pathology and had an MRI brain that was also without noted pathology. WBC was 10.1, hgb 14.8, platelets 221, na 138, K 4.4, Cr 1 and LFTs, troponin, TSH, calcium and alcohol level were wnl. He is now being admitted for severe episodic vertigo with inability to ambulate. HOSPITAL COURSE: Patient as treated with vestibular therapy and PT/OT while inpatient. On 0 patient continued to experience nausea with dizziness, he was continued on zofran, meclizine. By 08/22/20 patient had much improved. He was given instruction on how to maneuver with vertigo and was referred to o/p vestibular clinic. He is advised to update his PCP on his current admission. On admission he denied dizziness, n/v, headache, blurry vision. 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 DISCHARGE MEDICATIONS: Please see below. OBJECTIVE: VS: Please see below GEN: NAD, resting in bed, AAOx 3 HEENT: Normocephalic, atraumatic. Pupils are equal, round, and reactive to light. Extraocular movements are intact. Moist mucous membranes. Poor dentition. NECK: Supple, trachea midline, no lymphadenopathy or thyromegaly appreciated. CARDIAC: Regular rate and rhythm, +S1, +S2, no m/r/g LUNGS: Clear to auscultation bilaterally. No wheezes, rales, or rhonchi. Speaking in full sentences ABDOMEN: Round, obese, soft, non-tender, non-distended. Normoactive bowel sounds throughout. No rebound or guarding EXT: Pulses 2+ bilaterally dorsalis pedis and radial. No lower extremity edema appreciated. SKIN: No rashes, warm, dry NEURO: Alert and oriented x 3. Cranial nerves III-XII are intact. No nystagmus this AM. Moving all extremities spontaneously. Clear speech EKG: NSR Labs: Summarized above Imaging: Noncontrast head CT: No evidence for acute intracranial pathology or trauma/injury. MRI no contrast: No acute intracranial abnormality. Assessment: 54 yo man with a history of morbid obesity, HTN, HLD, RADHA on CPAP, GERD, remote alcohol misuse disorder, DENTON, MDD and anxiety who presented to the ED with episodic dizziness with spinning sensation with associated nausea and vomiting without any clear precipitants or other recent illness, most likely c/w BPPV. PLAN: Vertigo c/f BPPV -Improved with vestibular rehab and PT/OT -Imaging above neg -D/c home with meclizine, zofran PRn -Advised to c/w o/p vestibular rehab, f/u with PCP after discharge. -If symptoms should worsen, he should report to medical provider HERBERTH HTN. -C/w hydrochlorothiazide 25 mg daily, lisinopril 40 mg daily and amlodipine 5mg daily. Dyslipidemia. -Continue Lipitor 40 mg daily. GERD. -Continue omeprazole 40mg BID per home script Iron deficiency. -Continue ferrous sulfate 325 mg by mouth daily. Depression. -Bupropion 100mg PO daily -Sertraline 75mg PO daily RADHA. -Nightly CPAP Dispo: Discharged home today in improved condition, o/p vestibular rehab referral and encouraged to f/u with PCP within 1-2 weeks. TIME SPENT ON DISCHARGE: Greater than 30 minutes. Vital Signs/I&Os Vital Signs Date Time Temp Pulse Resp B/P (MAP) Pulse Ox O2 Delivery O2 Flow Rate FiO2 08/22/20 09:48 97 126/90 08/22/20 06:00 97.1 18 97 Room Air I&O- Last 24 Hours up to 6 AM 08/22/20 05:59 Intake Total 960 ml Output Total 0 ml Balance 960 ml Laboratory Data Labs 24H Laboratory Tests 2 08/22/20 05:47: Nucleated Red Blood Cells % (auto) 0.0, Anion Gap 4L, Glomerular Filtration Rate > 60.0, Calcium Level 9.4 CBC/BMP Laboratory Tests 08/22/20 05:47 Discharge Medications Scheduled Amlodipine Besylate (Amlodipine Besylate) 5 Mg Tab, 5 MG PO DAILY, (Reported) Atorvastatin Calcium (Atorvastatin Calcium) 40 Mg Tab, 40 MG PO DAILY, (Reported) Bupropion HCl (Bupropion HCl Sr) 100 Mg Tab.sr.12h, 100 MG PO DAILY, (Reported) Ferrous Sulfate (Ferrous Sulfate) 325 Mg Tablet, 325 MG PO DAILY, (Reported) Furosemide (Furosemide) 40 Mg Tablet, 40 MG PO DAILY, (Reported) Hydrochlorothiazide (Hydrochlorothiazide) 25 Mg Tablet, 25 MG PO DAILY, (Repor pushpa) Ketoconazole (Ketoconazole) 120 Ml Shampoo, 1 DOSE TOP QWEEK, (Reported) Lisinopril (Lisinopril) 40 Mg Tablet, 40 MG PO DAILY, (Reported) Loratadine (Loratadine) 10 Mg Tablet, 10 MG PO DAILY, (Reported) Omeprazole (Omeprazole) 40 Mg Capsule.dr, 40 MG PO BID, (Reported) Sertraline HCl (Sertraline HCl) 50 Mg Tab, 75 MG PO DAILY, (Reported) Scheduled PRN Acetaminophen (Acetaminophen) 500 Mg Tablet, 500 MG PO Q4H PRN for PAIN, (Reported) Meclizine HCl (Meclizine HCl) 25 Mg Tablet, 25 MG PO Q6HP PRN for vertigo Ondansetron (Ondansetron Odt) 4 Mg Tab.rapdis, 1 TAB PO Q6-8HP PRN for nausea/vomiting Allergies Coded Allergies: oxycodone (Verified Adverse Reaction, Unknown, n/v, dizziness, 08/20/20) Anca Beasley MD Aug 22, 2020 18:28
== END 2020-08-22 13:09 | disposition home or self-care (01) ==
LOC: EDBD 07:40 → M ED 07:40 → EDSEX 07:40 → M ED INP 07:41 → ENRESERV 16:15 → M MSPAV 17:00
PROVIDERS: ADMIT Internal Medicine; ATTEND Internal Medicine
DX: R42 Dizziness and giddiness (principal); I10 Essential (primary) hypertension; E78.49 Other hyperlipidemia; D50.9 Iron deficiency anemia, unspecified; F41.9 Anxiety disorder, unspecified; F32.9 Major depressive disorder, single episode, unspecified; K21.9 Gastro-esophageal reflux disease without esophagitis; J30.9 Allergic rhinitis, unspecified; E66.01 Morbid (severe) obesity due to excess calories; G47.33 Obstructive sleep apnea (adult) (pediatric); Z79.899 Other long term (current) drug therapy; Z88.5 Allergy status to narcotic agent
CPT/HCPCS: 36415; 70450; 70551; 80048; 80053; 82550; 82553; 83735; 84443; 85025; 85027; 93005; 96372; 96374; 96375; 97112; 97116; 97162; 97530; 99285; G0480; J1650; J2405; U0002

== ENCOUNTER → 2020-11-28 | Outpatient (REF) | payer OTHER ==
[~2020-11-28] MED LIST changes: +ACET500T15 PO; +BUPR1TAB52 PO; +FERR325T18 PO; +FURO40TA2 PO; +HYDR-3490 PO; +KETO2SHA8 TOP; -LISI-538 PO; +LISI20TA33 PO; +LISI40TA4 PO; +LORA-674 PO; +MECL1TAB31 PO; +ONDA4TAB6 PO; +Physical Therapy
[2020-11-28 14:11] LABS: BASO # 0.1 10^3/uL (0.0-0.2); BASO % 0.6 % (0.0-1.0); EOS # 0.4 10^3/uL (0.0-0.5); EOS % 3.8 % (0.0-3.0); HEMATOCRIT 45.3 % (42.0-52.0); HEMOGLOBIN 14.8 g/dl (13.5-17.5); LYMPH # 2.3 10^3/uL (1.5-5.0); MEAN CORPUSCULAR HEMOGLOBIN 30.6 pg (27.0-33.0); MEAN CORPUSCULAR HGB CONC 32.7 g/dl (32.0-36.5); MEAN CORPUSCULAR VOLUME 93.8 fl (80.0-96.0); MONO # 0.7 10^3/uL (0.0-0.8); MONO % 6.9 % (2.0-8.0); NEUTROPHILS # 5.9 10^3/uL (1.5-8.5); NEUTROPHILS % 63.1 % (36.0-66.0); PLATELET COUNT, AUTOMATED 203 10^3/uL (150-450); RED BLOOD COUNT 4.83 10^6/uL (4.30-6.10); WHITE BLOOD COUNT 9.4 10^3/uL (4.0-10.0)
[2020-11-28 14:46] LABS: ALBUMIN 4.2 GM/DL (3.2-5.2); ALT/SGPT 35 U/L (12-78); BILIRUBIN,TOTAL 0.6 MG/DL (0.2-1.0); BLOOD UREA NITROGEN 13 MG/DL (7-18); CALCIUM LEVEL 9.5 MG/DL (8.5-10.1); CARBON DIOXIDE LEVEL 30 MEQ/L (21-32); CHLORIDE LEVEL 103 MEQ/L (98-107); CHOLESTEROL LEVEL 212 MG/DL (<200); CHOLESTEROL RISK RATIO 4.818 (<5); CREATININE FOR GFR 0.85 MG/DL (0.70-1.30); FREE T4 0.81 NG/DL (0.76-1.46); GLOMERULAR FILTRATION RATE > 60.0 (>56); GLUCOSE, FASTING 91 MG/DL (70-100); HDL CHOLESTEROL 44 MG/DL (>40); LDL CHOLESTEROL 125 MG/DL (<100); NON-HDL-C 168 MG/DL; NT-PRO BNP 51 PG/ML (<125); POTASSIUM SERUM 3.8 MEQ/L (3.5-5.1); SODIUM LEVEL 140 MEQ/L (136-145); TOTAL PROTEIN 7.4 GM/DL (6.4-8.2); TRIGLYCERIDES LEVEL 214 MG/DL (<150)
[2020-11-28 15:08] LABS: HEMOGLOBIN A1c 5.6 %
== END ==
LOC: M SFHCPLAZ 11:02
PROVIDERS: ATTEND Nurse Practitioner Family
DX: I11.0 Hypertensive heart disease with heart failure (principal); E78.2 Mixed hyperlipidemia; I50.32 Chronic diastolic (congestive) heart failure

== ENCOUNTER 2021-05-12 11:59 | Emergency (ER) | payer MEDICAID, OTHER ==
[~2021-05-12] VITALS: Ht 175.3 cm; Wt 128.9 kg
[2021-05-12] MEDS ORDERED: HYDR-643 (12:15)
[2021-05-12] MEDS ORDERED: WELL100T2 (12:32)
[2021-05-12 13:25] LABS: BASO # 0.1 10^3/uL (0.0-0.2); BASO % 0.5 % (0.0-1.0); EOS # 0.3 10^3/uL (0.0-0.5); EOS % 3.1 % (0.0-3.0); HEMATOCRIT 42.9 % (42.0-52.0); HEMOGLOBIN 14.7 g/dl (13.5-17.5); LYMPH # 2.2 10^3/uL (1.5-5.0); LYMPH % 20.1 % (24.0-44.0); MEAN CORPUSCULAR HEMOGLOBIN 31.7 pg (27.0-33.0); MEAN CORPUSCULAR HGB CONC 34.3 g/dl (32.0-36.5); MEAN CORPUSCULAR VOLUME 92.5 fl (80.0-96.0); MONO # 0.5 10^3/uL (0.0-0.8); MONO % 4.9 % (2.0-8.0); NEUTROPHILS # 7.8 10^3/uL (1.5-8.5); NEUTROPHILS % 70.3 % (36.0-66.0); PLATELET COUNT, AUTOMATED 215 10^3/uL (150-450); RED BLOOD COUNT 4.64 10^6/uL (4.30-6.10)
[2021-05-12 13:57] LABS: ALBUMIN 3.8 GM/DL (3.2-5.2); BILIRUBIN,DIRECT 0.2 MG/DL (0.0-0.2); BILIRUBIN,TOTAL 0.7 MG/DL (0.2-1.0); TOTAL PROTEIN 7.1 GM/DL (6.4-8.2)
[2021-05-12] MEDS ORDERED: LIDOCAINE 5% (LIDODERM) PATCH TD ONE (14:05)
[2021-05-12] MEDS ORDERED: ACETAMINOPHEN 500 MG TAB PO ONE (14:05)
--- NOTE | 2021-05-12 15:12 | REP ---
INDICATION: L flank pain,h/o kidney stones COMPARISON: 05/29/2018 TECHNIQUE: Axial noncontrast images from the lung bases to the pubic symphysis with coronal and sagittal reformations. This CT examination was performed using the following dose reduction techniques: Automated exposure control, adjustment of mA and/or kv according to the patient's size, and use of iterative reconstruction technique. FINDINGS: Lung bases are clear. Visualized heart and pericardium normal. Liver demonstrates hepatomegaly and diffuse fatty infiltration. Spleen, pancreas, bilateral adrenal glands and right kidney appear normal. Left kidney includes 2.5 mm nonobstructing lower pole calculus along with 3.1 cm and 2.8 cm exophytic hyperdense lesions similar to prior examination and likely representing complex proteinaceous cysts. No associated perinephric stranding, hydronephrosis or obstructing ureteral calculi. The enteric system is unremarkable and without obstruction or acute inflammatory process. Normal terminal ileum and appendix identified in the right lower quadrant. Few scattered colonic diverticula noted without acute diverticulitis. Pelvis demonstrates normal bladder and age-appropriate prostate/seminal vesicles. Surgical clips consistent with prior bilateral inguinal hernia repair. No ascites. No free air. No adenopathy. No focal inflammatory stranding. Abdominal aorta without aneurysm. Musculoskeletal structures are intact and without acute osseous abnormality (incidental bone island in the sacrum unchanged). IMPRESSION: 1. No acute abdominopelvic pathology appreciated. 2. Hepatomegaly and hepatosteatosis noted. 3. Relatively stable presumed complex left renal cysts and 2.5 mm nonobstructing left renal calculus. <Electronically signed by Odilon Blount > 05/12/21 [id number]
[2021-05-12] MEDS ORDERED: LIDO5DIS41 TOP (15:38)
[2021-05-12] MEDS ORDERED: POTASSIUM CHLORIDE 10 MEQ SR TABLET PO ONE (15:40)
[2021-05-12 15:47] VITALS: BP 176/92
[2021-05-12] MEDS ORDERED: **NOTE PATIENT COMMENT** MISC XX SCH (21:00)
--- NOTE | 2021-05-14 12:39 | ED PDOC ---
Post-Departure Follow-Up ct abd/p faxed to [facility] for fu Corey Molina MD May 14, 2021 12:39
== END 2021-05-12 16:03 | disposition home or self-care (01) ==
LOC: M ED 11:59
DX: N20.0 Calculus of kidney (principal); R16.0 Hepatomegaly, not elsewhere classified; N28.1 Cyst of kidney, acquired; I10 Essential (primary) hypertension; E78.5 Hyperlipidemia, unspecified; K21.9 Gastro-esophageal reflux disease without esophagitis; F33.9 Major depressive disorder, recurrent, unspecified; F41.9 Anxiety disorder, unspecified; G47.33 Obstructive sleep apnea (adult) (pediatric); Z91.19 Patient's noncompliance with other medical treatment and regimen; Z79.899 Other long term (current) drug therapy; Z88.5 Allergy status to narcotic agent; Z87.891 Personal history of nicotine dependence

== ENCOUNTER → 2021-07-11 | Outpatient (REF) ==
[~2021-07-11] MED LIST changes: +HYDR-643; +LIDO5DIS41 TOP; +WELL100T2
== END ==
LOC: M LAB 09:04
PROVIDERS: ATTEND Nurse Practitioner Adult Health
DX: Z02.1 Encounter for pre-employment examination (principal)

== ENCOUNTER 2021-07-12 08:32 | Outpatient (RCR) | payer OTHER | END 2021-07-22 | LOC: M PT 08:32 | PROVIDERS: ATTEND Orthopaedic Surgery | DX: M25.561 Pain in right knee (principal); Z96.659 Presence of unspecified artificial knee joint ==

== ENCOUNTER → 2021-08-21 | Outpatient (REF) | payer OTHER | LOC: M LAB REF 17:43 | PROVIDERS: ATTEND Physician Assistant | DX: L43.9 Lichen planus, unspecified (principal) ==

== ENCOUNTER 2021-08-29 15:45 | Outpatient (RCR) | payer OTHER | END 2021-09-21 | LOC: M PT 15:45 | PROVIDERS: ATTEND Orthopaedic Surgery | DX: Z96.651 Presence of right artificial knee joint (principal); M25.561 Pain in right knee ==

== ENCOUNTER → 2022-11-12 | Outpatient (CLI) | payer OTHER ==
[~2022-11-12] MED LIST changes: -FEXO60CA PO; +FEXO60TA99 PO; -FLUO10CA16 PO; +FLUO10CA18 PO; +LEVO1TAB39 PO; -LEVO500T3 PO; -OMEP-221 PO; +OMEP40CA5 PO
[2022-11-12 17:05] LABS: BASO % 0.5 % (0.0-1.0); EOS # 0.4 10^3/uL (0.0-0.5); EOS % 5.1 % (0.0-3.0); HEMATOCRIT 43.6 % (42.0-52.0); HEMOGLOBIN 14.2 g/dl (13.5-17.5); LYMPH # 1.6 10^3/uL (1.5-5.0); MEAN CORPUSCULAR HEMOGLOBIN 30.1 pg (27.0-33.0); MEAN CORPUSCULAR HGB CONC 32.6 g/dl (32.0-36.5); MEAN CORPUSCULAR VOLUME 92.4 fl (80.0-96.0); MONO # 0.7 10^3/uL (0.0-0.8); MONO % 8.8 % (2.0-8.0); NEUTROPHILS # 5.2 10^3/uL (1.5-8.5); NEUTROPHILS % 64.1 % (36.0-66.0); PLATELET COUNT, AUTOMATED 197 10^3/uL (150-450); RED BLOOD COUNT 4.72 10^6/uL (4.30-6.10); WHITE BLOOD COUNT 8.1 10^3/uL (4.0-10.0)
[2022-11-12 17:44] LABS: ALBUMIN 3.8 G/DL (3.2-5.2); ALKALINE PHOSPHATASE 85 U/L (46-116); ALT/SGPT 23 U/L (7.0-40); AST/SGOT 20 U/L (<34); BILIRUBIN,TOTAL 0.8 MG/DL (0.3-1.2); BLOOD UREA NITROGEN 17 MG/DL (9-23); CALCIUM LEVEL 9.3 MG/DL (8.5-10.1); CARBON DIOXIDE LEVEL 31 MMOL/L (20-31); CHLORIDE LEVEL 100 MMOL/L (98-107); FREE T4 0.78 NG/DL (0.89-1.76); GLUCOSE, FASTING 90 MG/DL (60-100); SODIUM LEVEL 137 MMOL/L (136-145); THYROID STIMULATING HORMONE 2.133 uIU/ML (0.55-4.78); TOTAL PROTEIN 6.7 G/DL (5.7-8.2)
[2022-11-12 20:09] LABS: CREATININE FOR GFR 0.86 MG/DL (0.70-1.30); GLOMERULAR FILTRATION RATE > 60.0 (>56)
[2022-11-12 20:30] LABS: MONO REFLEX EBV VCA IgM NEGATIVE (NEGATIVE)
== END ==
LOC: M WUC 11:51
PROVIDERS: ATTEND Student in an Organized Health Care Education/Training Program
DX: R53.83 Other fatigue (principal)

== ENCOUNTER 2023-05-07 22:07 | Inpatient (IN) | payer OTHER ==
[~2023-05-07] VITALS: Ht 175.3 cm; Wt 127.0 kg
[2023-05-07] MEDS ORDERED: hydrALAZINE 20MG/ML 1ML VIAL IV STA ×3 (22:37→23:41)
[2023-05-07 22:45] LABS: BASO # 0.1 10^3/uL (0.0-0.2); BASO % 0.6 % (0.0-1.0); EOS # 0.4 10^3/uL (0.0-0.5); EOS % 3.4 % (0.0-3.0); HEMATOCRIT 40.4 % (42.0-52.0); LYMPH # 2.4 10^3/uL (1.5-5.0); LYMPH % 22.8 % (24.0-44.0); MEAN CORPUSCULAR HEMOGLOBIN 31.5 pg (27.0-33.0); MEAN CORPUSCULAR HGB CONC 34.7 g/dl (32.0-36.5); MEAN CORPUSCULAR VOLUME 90.8 fl (80.0-96.0); MONO # 0.7 10^3/uL (0.0-0.8); MONO % 6.7 % (2.0-8.0); NEUTROPHILS # 6.8 10^3/uL (1.5-8.5); NEUTROPHILS % 65.5 % (36.0-66.0); PLATELET COUNT, AUTOMATED 220 10^3/uL (150-450); RED BLOOD COUNT 4.45 10^6/uL (4.30-6.10); WHITE BLOOD COUNT 10.4 10^3/uL (4.0-10.0)
[2023-05-07 22:46] LABS: ETHYL ALCOHOL (ETHANOL) < 0.003 % (0.000-0.010)
[2023-05-07 22:48] LABS: ACETAMINOPHEN LEVEL < 2.0 UG/ML (10.0-20.0); SALICYLATE LEVEL < 3.0 MG/DL (<30)
[2023-05-07 23:00] LABS: ALBUMIN 3.8 G/DL (3.2-5.2); ALKALINE PHOSPHATASE 86 U/L (46-116); ALT/SGPT 21 U/L (7.0-40); AST/SGOT 12 U/L (<34); BILIRUBIN,DIRECT 0.1 MG/DL (<0.4); BILIRUBIN,TOTAL 0.6 MG/DL (0.3-1.2); BLOOD UREA NITROGEN 16 MG/DL (9-23); CALCIUM LEVEL 9.8 MG/DL (8.5-10.1); CARBON DIOXIDE LEVEL 31 MMOL/L (20-31); CHLORIDE LEVEL 102 MMOL/L (98-107); CPK CREATINE PHOSPHOKINASE 99 U/L (46-171); CREATININE FOR GFR 1.29 MG/DL (0.70-1.30); GLOMERULAR FILTRATION RATE > 60.0 (>56); GLUCOSE, FASTING 112 MG/DL (60-100); MAGNESIUM LEVEL 2.1 MG/DL (1.8-2.4); POTASSIUM SERUM 3.6 MMOL/L (3.5-5.1); SODIUM LEVEL 141 MMOL/L (136-145); THYROID STIMULATING HORMONE 3.501 uIU/ML (0.55-4.78); TOTAL PROTEIN 6.7 G/DL (5.7-8.2)
[2023-05-07] MEDS ORDERED: ISOVUE-370 76% 100ML VIAL As Ordered ONE (23:14)
[2023-05-08] MEDS ORDERED: ACETAMINOPHEN 325 MG TAB PO ONE
[2023-05-08] MEDS ORDERED: LORazepam 2 MG/ML 1ML VIAL IV STA (00:47)
[2023-05-08] MEDS ORDERED: ONDANSETRON 4MG 2ML VIAL IV PRN (00:50)
[2023-05-08] MEDS ORDERED: ACETAMINOPHEN TAB 650MG DOSE (2X325MG) PO PRN (00:50)
[2023-05-08] MEDS ORDERED: hydrALAZINE 20MG/ML 1ML VIAL IV PRN (00:50)
[2023-05-08] MEDS ORDERED: BUPR150T12 PO (01:42)
[2023-05-08] MEDS ORDERED: ZOLO100T PO (01:42)
[2023-05-08] MEDS ORDERED: MECL-86 PO (01:42)
[2023-05-08] MEDS ORDERED: HOME MED LIST COMPLETE! XX SCH (01:45)
[2023-05-08 01:55] LABS: RSV AMPLIFICATION NEGATIVE (NEGATIVE)
[2023-05-08] MEDS ORDERED: MECLIZINE 25 MG TABLET PO PRN (02:10)
[2023-05-08 02:59] VITALS: BP 238/116; TEMP 97.6; O2SAT 98
[2023-05-08] MEDS ORDERED: LABETALOL 100MG/20ML VIAL IV STA (03:08)
[2023-05-08 03:14] VITALS: BP 238/116
[2023-05-08 03:27] VITALS: BP 164/86
[2023-05-08 03:51] VITALS: BP 162/90; TEMP 97.7; O2SAT 95
[2023-05-08 04:32] LABS: HEMATOCRIT 39.3 % (42.0-52.0); HEMOGLOBIN 13.3 g/dl (13.5-17.5); MEAN CORPUSCULAR HEMOGLOBIN 31.2 pg (27.0-33.0); MEAN CORPUSCULAR HGB CONC 33.8 g/dl (32.0-36.5); MEAN CORPUSCULAR VOLUME 92.3 fl (80.0-96.0); PLATELET COUNT, AUTOMATED 191 10^3/uL (150-450); RED BLOOD COUNT 4.26 10^6/uL (4.30-6.10); WHITE BLOOD COUNT 9.8 10^3/uL (4.0-10.0)
[2023-05-08 04:41] LABS: BLOOD UREA NITROGEN 20 MG/DL (9-23); CALCIUM LEVEL 9.5 MG/DL (8.5-10.1); CARBON DIOXIDE LEVEL 28 MMOL/L (20-31); CHLORIDE LEVEL 102 MMOL/L (98-107); CREATININE FOR GFR 1.05 MG/DL (0.70-1.30); GLOMERULAR FILTRATION RATE > 60.0 (>56); GLUCOSE, FASTING 135 MG/DL (60-100); MAGNESIUM LEVEL 2.1 MG/DL (1.8-2.4); POTASSIUM SERUM 3.5 MMOL/L (3.5-5.1); SODIUM LEVEL 139 MMOL/L (136-145)
[2023-05-08] MEDS ORDERED: **hydrALAZINE HCL** 25 MG TAB PO SCH (06:00)
[2023-05-08 08:00] VITALS: BP 152/84; TEMP 98; O2SAT 93
[2023-05-08] MEDS ORDERED: SERTRALINE 100 MG TAB PO SCH (09:00)
[2023-05-08] MEDS ORDERED: ATORVASTATIN 20 MG TAB PO SCH (09:00)
[2023-05-08] MEDS ORDERED: FERROUS SULFATE 325MG TAB PO SCH (09:00)
[2023-05-08] MEDS ORDERED: FUROSEMIDE 40 MG TAB PO SCH (09:00)
[2023-05-08] MEDS ORDERED: lisinopriL 40MG TAB PO SCH (09:00)
[2023-05-08] MEDS ORDERED: OMEPRAZOLE 20MG CAP PO SCH (09:00)
[2023-05-08] MEDS ORDERED: buPROPion **XL** TABLET 150MG (WELLBUTRIN XL) PO SCH (09:00)
[2023-05-08] MEDS ORDERED: AMLO1TAB24 PO (09:52)
== END 2023-05-08 11:13 | disposition home or self-care (01) | DRG 199 ==
LOC: EDBD 22:07 → M ED 22:07 → M ED INP 05-08 00:47 → ENRESERV 05-08 01:34 → M PCU 05-08 02:56
PROVIDERS: ADMIT Family Medicine; ATTEND Internal Medicine Nephrology
DX: I16.1 Hypertensive emergency (principal); Z68.41 Body mass index [BMI] 40.0-44.9, adult; E66.01 Morbid (severe) obesity due to excess calories; F41.9 Anxiety disorder, unspecified; G47.33 Obstructive sleep apnea (adult) (pediatric); F32.A Depression, unspecified; E78.5 Hyperlipidemia, unspecified; I16.9 Hypertensive crisis, unspecified; K21.9 Gastro-esophageal reflux disease without esophagitis; I10 Essential (primary) hypertension; R42 Dizziness and giddiness; Z79.899 Other long term (current) drug therapy; Z88.5 Allergy status to narcotic agent; Z91.198 Patient's noncompliance with other medical treatment and regimen for other reason; Z91.148 Patient's other noncompliance with medication regimen for other reason; Z96.653 Presence of artificial knee joint, bilateral

== ENCOUNTER 2023-06-03 16:51 | Inpatient (IN) | payer MEDICAID, OTHER ==
[~2023-06-03] VITALS: Ht 175.3 cm; Wt 121.6 kg
[~2023-06-03 16:51] MED LIST changes: +BUPR150T12 PO; +LORA-1041 PO; -LORA-674 PO; +MECL-209 PO; +MECL-86 PO; -MECL1TAB31 PO
[2023-06-03] MEDS ORDERED: ASPIRIN 325 MG TAB PO ONE (18:00)
[2023-06-03] MEDS ORDERED: hydrALAZINE 20MG/ML 1ML VIAL IV ONE (19:50)
[2023-06-03] MEDS ORDERED: ISOVUE-370 76% 100ML VIAL As Ordered ONE (20:57)
[2023-06-03 21:02] LABS: BASO # 0.1 10^3/uL (0.0-0.2); BASO % 0.6 % (0.0-1.0); EOS # 0.2 10^3/uL (0.0-0.5); EOS % 2.3 % (0.0-3.0); HEMATOCRIT 38.2 % (42.0-52.0); HEMOGLOBIN 13.1 g/dl (13.5-17.5); LYMPH # 1.9 10^3/uL (1.5-5.0); LYMPH % 19.2 % (24.0-44.0); MEAN CORPUSCULAR HEMOGLOBIN 31.2 pg (27.0-33.0); MEAN CORPUSCULAR HGB CONC 34.3 g/dl (32.0-36.5); MONO # 0.7 10^3/uL (0.0-0.8); MONO % 7.2 % (2.0-8.0); NEUTROPHILS % 69.8 % (36.0-66.0); PLATELET COUNT, AUTOMATED 208 10^3/uL (150-450); WHITE BLOOD COUNT 10.1 10^3/uL (4.0-10.0)
[2023-06-03 21:16] LABS: INR 1.07; PARTIAL THROMBOPLASTIN TIME 29.2 SECONDS (24.8-34.2); PROTHROMBIN TIME 13.6 SECONDS (12.5-14.5)
[2023-06-03 21:31] LABS: BLOOD UREA NITROGEN 23 MG/DL (9-23); CALCIUM LEVEL 9.1 MG/DL (8.5-10.1); CARBON DIOXIDE LEVEL 28 MMOL/L (20-31); CHLORIDE LEVEL 104 MMOL/L (98-107); CREATININE FOR GFR 0.92 MG/DL (0.70-1.30); GLOMERULAR FILTRATION RATE > 60.0 (>56); GLUCOSE, FASTING 98 MG/DL (60-100); POTASSIUM SERUM 3.7 MMOL/L (3.5-5.1); SODIUM LEVEL 140 MMOL/L (136-145)
[2023-06-03] MEDS ORDERED: CLOPIDOGREL 300 MG TAB (PLAVIX) PO STA (21:41)
[2023-06-03] MEDS ORDERED: **hydrALAZINE** 10 MG TAB PO ONE (22:20)
[2023-06-03] MEDS ORDERED: CARV3.12 PO (23:33)
[2023-06-03] MEDS ORDERED: AMLO1TAB25 PO (23:33)
[2023-06-03] MEDS ORDERED: NAPR500T6 PO (23:34)
[2023-06-03] MEDS ORDERED: HOME MED LIST COMPLETE! XX SCH (23:35)
[2023-06-04] VITALS (7 sets, daily range): BP systolic 167–174; BP diastolic 85–102; TEMP 97.2–97.8; O2SAT 97–98
[2023-06-04] MEDS ORDERED: MECLIZINE 25 MG TABLET PO PRN (00:40)
[2023-06-04] MEDS ORDERED: FAMOTIDINE 20 MG TAB PO SCH (09:00)
[2023-06-04] MEDS ORDERED: ASPIRIN 81MG CHEW TABLET PO SCH (09:00)
[2023-06-04] MEDS ORDERED: OMEPRAZOLE 20MG CAP PO SCH (09:00)
[2023-06-04] MEDS ORDERED: lisinopriL 40MG TAB PO SCH (09:00)
[2023-06-04] MEDS ORDERED: ATORVASTATIN 20 MG TAB PO SCH (09:00)
[2023-06-04] MEDS ORDERED: CARVedilol 3.125 MG TAB PO SCH (09:00)
[2023-06-04] MEDS ORDERED: FUROSEMIDE 40 MG TAB PO SCH (09:00)
[2023-06-04] MEDS ORDERED: buPROPion **XL** TABLET 150MG (WELLBUTRIN XL) PO SCH (09:00)
[2023-06-04] MEDS ORDERED: FERROUS SULFATE 325MG TAB PO SCH (09:00)
[2023-06-04] MEDS ORDERED: CLOPIDOGREL 75 MG TAB PO SCH (09:00)
[2023-06-04] MEDS ORDERED: LORATADINE 10 MG TAB PO SCH (09:00)
[2023-06-04] MEDS ORDERED: ENOXAPARIN 40MG/0.4ML SYRINGE (J1650 PER 10MG) SC SCH (09:00)
[2023-06-04] MEDS ORDERED: SERTRALINE 100 MG TAB PO SCH (09:00)
[2023-06-04] MEDS ORDERED: FAMO20TA PO (10:19)
[2023-06-04] MEDS ORDERED: ASPI81CH8 PO (10:19)
[2023-06-04] MEDS ORDERED: CLOP75TA2 PO (12:26)
== END 2023-06-04 15:21 | disposition home or self-care (01) | DRG 45 ==
LOC: M ED 16:51 → M ED INP 06-04 00:31 → M PCU 06-04 03:31
PROVIDERS: ADMIT Internal Medicine; ATTEND Family Medicine
DX: I63.9 Cerebral infarction, unspecified (principal); I10 Essential (primary) hypertension; E78.5 Hyperlipidemia, unspecified; I16.1 Hypertensive emergency; K21.9 Gastro-esophageal reflux disease without esophagitis; R20.0 Anesthesia of skin; F41.9 Anxiety disorder, unspecified; F32.A Depression, unspecified; Z88.5 Allergy status to narcotic agent; Z79.899 Other long term (current) drug therapy; Z79.82 Long term (current) use of aspirin; Z96.653 Presence of artificial knee joint, bilateral

== ENCOUNTER 2023-08-24 13:55 | Emergency (ER) | payer MEDICAID, OTHER ==
[~2023-08-24] VITALS: Ht 175.3 cm; Wt 120.7 kg
[~2023-08-24 13:55] MED LIST changes: +AMLO1TAB25 PO; +ASPI81CH8 PO; +CARV3.12 PO; +CLOP75TA2 PO; +FAMO20TA PO; +NAPR500T6 PO
[2023-08-24] MEDS ORDERED: NAPR-837 PO (17:03)
[2023-08-24 17:28] VITALS: BP 160/101; TEMP 97.8; O2SAT 98
== END 2023-08-24 17:30 | disposition home or self-care (01) ==
LOC: M ED 13:55
DX: M79.602 Pain in left arm (principal); I45.81 Long QT syndrome; I10 Essential (primary) hypertension; F10.10 Alcohol abuse, uncomplicated; Z88.5 Allergy status to narcotic agent; Z96.653 Presence of artificial knee joint, bilateral; Z79.811 Long term (current) use of aromatase inhibitors; Z79.82 Long term (current) use of aspirin; Z79.02 Long term (current) use of antithrombotics/antiplatelets; Z79.899 Other long term (current) drug therapy

== ENCOUNTER → 2024-01-05 | Outpatient (REF) | LOC: M EMP 08:19 | PROVIDERS: ATTEND Family Medicine | DX: Z20.822 Contact with and (suspected) exposure to COVID-19 (principal) ==

== ENCOUNTER → 2024-03-01 | Outpatient (CLI) | payer OTHER ==
[~2024-03-01] MED LIST changes: +FLUO-290 PO; +FLUO-365; -FLUO10CA18 PO; -FLUO20CA22; +ONDA-282 PO; -ONDA4TAB6 PO
[2024-03-01 07:16] LABS: HEMOGLOBIN A1c 5.7 % (4.0-6.0)
[2024-03-01 07:25] LABS: CHOLESTEROL RISK RATIO 5.71 (<5); HDL CHOLESTEROL 41.5 MG/DL (>40); LDL CHOLESTEROL 141.9 MG/DL (<100); NON-HDL-C 195.5 MG/DL
== END ==
LOC: M LAB 06:18
PROVIDERS: ATTEND Physician Assistant
DX: Z91.89 Other specified personal risk factors, not elsewhere classified (principal)

== ENCOUNTER → 2024-03-23 | Outpatient (REF) | payer OTHER | LOC: M SFHCDERM 16:27 | PROVIDERS: ATTEND Nurse Practitioner Family | DX: L91.8 Other hypertrophic disorders of the skin (principal) ==

== ENCOUNTER → 2024-08-12 | Outpatient (CLI) | payer OTHER ==
[~2024-08-12] MED LIST changes: +NAPR-1405 PO; -NAPR500T6 PO
== END ==
LOC: M SLEEP 20:00
PROVIDERS: ATTEND Internal Medicine Pulmonary Disease
DX: G47.33 Obstructive sleep apnea (adult) (pediatric) (principal)

== ENCOUNTER → 2024-11-29 | Outpatient (CLI) | payer OTHER ==
[2024-11-29 12:24] LABS: IONIZED CALCIUM 4.9 MG/DL (4.5-5.3)
[2024-11-29 12:28] LABS: BASO # 0.1 10^3/uL (0.0-0.2); BASO % 0.8 % (0.0-1.0); EOS # 0.3 10^3/uL (0.0-0.5); EOS % 3.7 % (0.0-3.0); HEMATOCRIT 41.2 % (42.0-52.0); HEMOGLOBIN 13.8 g/dl (13.5-17.5); LYMPH % 21.5 % (24.0-44.0); MEAN CORPUSCULAR HEMOGLOBIN 31.6 pg (27.0-33.0); MEAN CORPUSCULAR HGB CONC 33.5 g/dl (32.0-36.5); MEAN CORPUSCULAR VOLUME 94.3 fl (80.0-96.0); MONO # 0.6 10^3/uL (0.0-0.8); MONO % 6.7 % (2.0-8.0); NEUTROPHILS % 65.7 % (36.0-66.0); PLATELET COUNT, AUTOMATED 190 10^3/uL (150-450); RED BLOOD COUNT 4.37 10^6/uL (4.30-6.10); WHITE BLOOD COUNT 9.2 10^3/uL (4.0-10.0)
[2024-11-29 13:04] LABS: FERRITIN 506.6 NG/ML (10.5-307.3)
== END ==
LOC: M LAB 11:56
PROVIDERS: ATTEND Student in an Organized Health Care Education/Training Program
DX: D64.9 Anemia, unspecified (principal); E83.52 Hypercalcemia

== ENCOUNTER → 2025-01-10 | Outpatient (CLI) | payer OTHER | LOC: M RAD 11:58 | PROVIDERS: ATTEND Physician Assistant Medical | DX: M16.12 Unilateral primary osteoarthritis, left hip (principal) ==

== ENCOUNTER 2025-01-27 19:35 | Emergency (ER) | payer OTHER ==
[~2025-01-27] VITALS: Ht 175.3 cm; Wt 132.1 kg
[~2025-01-27 19:35] MED LIST changes: +BUPR-670 PO; -BUPR1TAB52 PO; +KETO120S5 TOP; -KETO2SHA8 TOP
[2025-01-27 21:07] VITALS: BP 189/92; TEMP 96.7; O2SAT 93
== END 2025-01-27 21:37 | disposition home or self-care (01) ==
LOC: M ED 19:35
DX: R06.02 Shortness of breath (principal); E78.5 Hyperlipidemia, unspecified; I10 Essential (primary) hypertension; K21.9 Gastro-esophageal reflux disease without esophagitis; Z87.891 Personal history of nicotine dependence; Z79.899 Other long term (current) drug therapy; Z88.5 Allergy status to narcotic agent

== ENCOUNTER 2025-02-04 11:34 | Emergency (ER) | payer OTHER ==
[~2025-02-04] VITALS: Ht 175.3 cm; Wt 134.0 kg
[~2025-02-04 11:34] MED LIST changes: +LIDO1ADH93 TOP; -LIDO5DIS41 TOP
[2025-02-04] MEDS ORDERED: DULO1CAP4 (11:49)
[2025-02-04 13:41] VITALS: BP 180/95; TEMP 97.8; O2SAT 97
== END 2025-02-04 14:50 | disposition left against medical advice (07) ==
LOC: M ED 11:34
DX: Z53.21 Procedure and treatment not carried out due to patient leaving prior to being seen by health care provider (principal)

== ENCOUNTER → 2025-07-06 | Outpatient (CLI) | payer MEDICARE, OTHER ==
[~2025-07-06] MED LIST changes: +DULO1CAP4; +LISI40TA10 PO; -LISI40TA4 PO
[2025-07-06 09:13] LABS: ESTIMATED AVERAGE GLUCOSE 128.0 MG/DL (60-110)
[2025-07-06 09:25] LABS: ALT/SGPT 30 U/L (7.0-40); AST/SGOT 23 U/L (<34); CALCIUM LEVEL 8.7 MG/DL (8.3-10.6); CARBON DIOXIDE LEVEL 31 MMOL/L (20-31); CHLORIDE LEVEL 104 MMOL/L (98-107); CHOLESTEROL LEVEL 196 MG/DL (<200); CHOLESTEROL RISK RATIO 4.81 (<5); CREATININE FOR GFR 0.92 MG/DL (0.70-1.30); GLOMERULAR FILTRATION RATE > 90.0 (>49); LDL CHOLESTEROL 121.9 MG/DL (<100); NON-HDL-C 155.3 MG/DL; POTASSIUM SERUM 4.0 MMOL/L (3.5-5.1); SODIUM LEVEL 143 MMOL/L (136-145); TRIGLYCERIDES LEVEL 167 MG/DL (<150)
== END ==
LOC: M LAB 07:39
PROVIDERS: ATTEND Student in an Organized Health Care Education/Training Program
DX: R10.9 Unspecified abdominal pain (principal); E66.01 Morbid (severe) obesity due to excess calories; E07.9 Disorder of thyroid, unspecified

== ENCOUNTER 2025-08-01 18:24 | Emergency (ER) | payer MEDICARE ==
[~2025-08-01] VITALS: Ht 175.3 cm; Wt 136.1 kg
[~2025-08-01 18:24] MED LIST changes: +BUPR-363 PO; -BUPR75TA5 PO
[2025-08-01 19:03] LABS: BASO # 0.1 10^3/uL (0.0-0.2); BASO % 0.6 % (0.0-1.0); EOS # 0.4 10^3/uL (0.0-0.5); EOS % 4.4 % (0.0-3.0); LYMPH # 2.2 10^3/uL (1.5-5.0); LYMPH % 23.4 % (24.0-44.0); MONO # 0.6 10^3/uL (0.0-0.8); MONO % 6.2 % (2.0-8.0); NEUTROPHILS # 6.0 10^3/uL (1.5-8.5); NEUTROPHILS % 63.5 % (36.0-66.0); PLATELET COUNT, AUTOMATED 201 10^3/uL (150-450)
[2025-08-01 19:17] VITALS: BP 207/102
[2025-08-01] MEDS: hydroCHLOROthiazide 25 MG TAB PO ONE (19:17)
[2025-08-01 19:30] LABS: ALT/SGPT 37 U/L (7.0-40); AST/SGOT 29 U/L (<34); CALCIUM LEVEL 9.1 MG/DL (8.3-10.6); CARBON DIOXIDE LEVEL 29 MMOL/L (20-31); CHLORIDE LEVEL 102 MMOL/L (98-107); CREATININE FOR GFR 0.92 MG/DL (0.70-1.30); GLOMERULAR FILTRATION RATE > 90.0 (>49); POTASSIUM SERUM 3.6 MMOL/L (3.5-5.1); SODIUM LEVEL 140 MMOL/L (136-145)
[2025-08-01] MEDS: hydrALAZINE 20 MG/ML 1 ML VIAL IV STA ×2 (20:16→22:07)
[2025-08-01 23:15] VITALS: BP 157/91; TEMP 97.4; O2SAT 99
[2025-08-01] MEDS ORDERED: LISI40TA10 PO (23:16)
[2025-08-01] MEDS ORDERED: HYDR-3490 PO (23:16)
[2025-08-01 23:19] LABS: CK-MB VALUE MASS 1.7 NG/ML (<3.6)
[2025-08-01 23:20] LABS: CPK CREATINE PHOSPHOKINASE 91 U/L (46-171); MB/CK RELATIVE INDEX 1.86 (< OR =4)
== END 2025-08-01 23:32 | disposition home or self-care (01) ==
LOC: M ED 18:24
DX: I10 Essential (primary) hypertension (principal); K21.9 Gastro-esophageal reflux disease without esophagitis; F32.A Depression, unspecified; E78.5 Hyperlipidemia, unspecified; R42 Dizziness and giddiness; Z86.73 Personal history of transient ischemic attack (TIA), and cerebral infarction without residual deficits; Z79.899 Other long term (current) drug therapy; Z88.5 Allergy status to narcotic agent
CPT/HCPCS: 70450; 71046; 80053; 82248; 82550; 82553; 84484; 85025; 93005; 99284; J0360

== ENCOUNTER → 2025-08-09 | Outpatient (CLI) | payer MEDICARE | LOC: M RAD 10:57 | PROVIDERS: ATTEND Physician Assistant Medical | DX: M79.672 Pain in left foot (principal) ==

== ENCOUNTER → 2025-09-06 | Outpatient (REF) | payer MEDICARE | LOC: M LAB REF 16:16 | PROVIDERS: ATTEND Student in an Organized Health Care Education/Training Program | DX: M79.89 Other specified soft tissue disorders (principal) ==